=== PATIENT | male | born 1955 | race Caucasian/White ===

== ENCOUNTER → 2017-09-16 13:49 | Outpatient (CLI) | payer OTHER, SELFPAY ==
[2017-09-16 14:57] LABS: PSA,Total- Diagnostic 8.82 ng/mL (0.0-4.0)
== END ==
PROVIDERS: Family Provider Internal Medicine; PCP Internal Medicine; Visit Provider Nurse Practitioner Adult Health
DX: R97.20 Elevated prostate specific antigen [PSA] (principal)
CPT/HCPCS: 36415; 84153

== ENCOUNTER 2017-10-11 22:48 | Emergency (ER) | payer OTHER, SELFPAY ==
[2017-10-11 22:48] VITALS: BP 153/92; PULSE 51; RESP 18; TEMP 36.3; O2SAT 98; BMI 29.9
--- NOTE | 2017-10-11 23:03 | ED.DCSUM_ITS ---
- ER Visit Summary Date of Service: 10/11/17 Chief Complaint: Left flank pain History of Present Illness: The patient is a 62 M with history of prior kidney stones who presents for left flank pain, onset 2 hours ago. Pain was severe, and patient took Toradol he has at home. He now has a dull ache and states he is able to sit still. No nausea, vomiting, diarrhea, hematuria or dysuria. He does state he is slow to urinate. He has had similar symptoms in the past with prior kidney stones. He has had to have intervention for complicated stones in the past that would not pass spontaneously. Patient sees [facility]. He is currently on prednisone for a neck problem. Physical Examination: Vital signs: afebrile, hemodynamically stable, no hypoxia on room air General: well nourished, well developed, in no distress, appears mildly uncomfortable Skin: warm, dry, no rash, no pallor HEENT: normocephalic and atraumatic; PERRL, EOMI, moist mucous membranes Cardiovascular: regular rate and rhythm without murmurs, no peripheral edema, 2 + pulses all distal extremities Respiratory: No increased work of breathing, lungs are clear to auscultation bilaterally, no rales, rhonchi or wheezing Abdominal: Abdomen is soft, left lower quadrant is tender with normoactive bowel sounds, no guarding or rebound, no masses MSK: Moves all extremities, no deformities, normal strength Neuro: Awake and alert, oriented ?4. No facial droop, sensation and motor function intact and symmetric Test Results: Abnormal Lab Results 10/11/17 10/11/17 10/12/17 23:00 23:00 00:05 WBC 8.2 RBC 4.40 L Hgb 13.4 Hct 38.9 L MCV 88.4 MCH 30.5 MCHC 34.4 RDW 13.5 RDW Differential 43.6 Plt Count 210 MPV 10.4 Immature Gran % (Auto) 0.400 Neut % (Auto) 64.6 Lymph % (Auto) 23.0 [place] % (Auto) 5.1 Eos % (Auto) 5.9 H Baso % (Auto) 1.0 Absolute Neuts (auto) 5.3 Absolute Lymphs (auto) 1.88 Total Counted Not Reportable Sodium 141 Potassium 3.8 Chloride 107 Carbon Dioxide 24.0 Anion Gap 10 BUN 23 H Creatinine 1.21 Estim Creat Clear Calc 63.30 Est GFR (MDRD) Af Amer 78 Est GFR (MDRD) Non-Af 64 BUN/Creatinine Ratio 19.0 Glucose 149 H Calcium 8.5 Urine Color Yellow Urine Clarity Clear Urine pH 6.0 Ur Specific [place] 1.020 Urine Protein Negative Urine Glucose (UA) Normal Urine Ketones Negative Urine Occult Blood Negative Urine Nitrite Negative Urine Bilirubin Negative Urine Urobilinogen Normal Ur Leukocyte Esterase Negative Urine RBC 0 SEEN Urine WBC 0 SEEN Ur Squamous Epith Cells 0-5 SEEN Urine Bacteria 0 SEEN Urine Mucus 0 SEEN Clinical Impression(s) from Imaging Studies Abdomen/Pelvis CT 10/11/17 23:00 IMPRESSION: Nonobstructing upper pole left renal stone. Enlarged prostate. Small fatty umbilical hernia. Electronically Signed: Sylvain Morrissey DO at 23:41 EDT Tel [phone], Service support , Medications Given Hydromorphone HCl (Dilaudid Inj) 0.5 mg IV X1 ONE Stop: 10/12/17 00:38 Discontinued Medications Hydromorphone HCl (Dilaudid Inj) 0.5 mg IV X1 ONE Stop: 10/11/17 23:01 Last Admin: 10/11/17 23:08 Dose: 0.5 mg Ondansetron HCl (Zofran) 4 mg IV X1 ONE Stop: 10/11/17 23:01 Last Admin: 10/11/17 23:06 Dose: 4 mg Emergency Department Course and Treatment: Patient's symptoms are concerning for kidney stone, especially with patient's history and him stating this is typical for his kidney stone pain. Labs and urinalysis obtained. CT flank obtained given patient's history of complicated stones in the past. CT did not show any ureteral stone or indications of a recently passed stone Patient already took Toradol at home and was given additional pain control with IV Dilaudid and Zofran. He had improvement of his pain, but he continued to have severe shooting left flank pain. Reexamination showed no signs of early zoster or active zoster on the torso. Discussed the possibility of a musculoskeletal pain, and patient states that it really feels like internal pain and just like his prior kidney stones. Because he is having severe left flank pain without evidence of a kidney stone, CTA of the abdomen and pelvis was performed to evaluate for any possible renal infarction or renal vein/ artery thrombosis or other intra-abdominal pathology resulting in his pain. Patient was given additional pain medication. Final disposition is pending results of the CTA, which will be followed up by the night physician. Treatment Plan: [] Disposition: [] Impression: Left flank pain This note was generated with Animeeple dictation software. It may contain incorrect words, spelling, and punctuation that were not noted in review of the chart prior to signing <Meghan Kulkarni - Last Filed: 10/12/17 00:37> - ER Visit Summary Date of Service: 10/12/17 Addendum: CT angios done showed no significant abnormalities. I will enlarged prostate noted. The patient stated his PSA was checked 3 months ago and normal. Patient CTA shows no evidence of abnormality with a kidney. Nothing acute noted. Patient feels much better after treatment. Will be discharged with a short course of Percocet Zofran. This note was generated with Animeeple dictation software. It may contain incorrect words, spelling, and punctuation that were not noted in review of the chart prior to signing <Jose Velarde - Last Filed: 10/12/17 02:10> ED Disposition <Meghan Kulkarni - Last Filed: 10/12/17 00:37> <Jose Velarde - Last Filed: 10/12/17 02:10> - Plan for ED Patient: Disposition: Home or Assisted Living Chief Complaint: Flank Pain Instructions: ED Flank Pain Uncertain Cause Prescriptions: Oxycodone HCl/Acetaminophen [Percocet 5/325] 1 - 2 tab PO Q6H PRN PRN 3 Days #8 tab PRN Reason: Pain Ondansetron [Zofran Odt] 4 mg PO Q8H PRN PRN #10 tab PRN Reason: Nausea Referrals: Pau Garcia DO [Primary Care Provider] -
[2017-10-11] MEDS: Ondansetron 4 MG/2 ML Vial IV (23:06)
[2017-10-11] MEDS: HYDROmorphone 0.5 MG/0.5 ML SYRINGE IV (23:08)
[2017-10-11 23:11] LABS: Absolute Lymphocyte Count 1.88 X10^3/ul (0.83-4.51); Absolute Neutrophil Count 5.3 X10^3/uL (2.0-7.7); Basophil# 0.08 X10^3/uL; Eosinophil# 0.48 X10^3/uL; Eosinophils% 5.9 % (0-5); Hematocrit 38.9 % (40-54); Hemoglobin 13.4 g/dl (13.0-16.5); Lymphocyte # 1.88 X10^3/ul (4.0); Mean Corp Hgb Conc 34.4 g/gl (32-36); Mean Corpuscular Hgb 30.5 pg (27.0-32.0); Mean Corpuscular Volume 88.4 fL (80-94); Mean Platelet Vol. 10.4 fl (6.2-12.0); Monocyte# 0.42 X10^3/uL; Monocyte% 5.1 % (0-10); Neutrophil # 5.27 X10^3/uL (2.7-7.7); Neutrophil % 64.6 % (47-70); Platelet Count 210 K/mm3 (150-450); RBC Distribution Width CV 13.5 % (11.6-14.6); RBC Distribution Width SD 43.6 fl (35.1-43.9); White Blood Count 8.2 K/mm3 (4.4-11.0)
[2017-10-11 23:15] LABS: POSITIVE COUNT NO; POSITIVE DIFFERENTIAL NO; POSITIVE MORPHOLOGY NO
[2017-10-11 23:33] LABS: Anion Gap 10 (5-15); BUN 23 mg/dL (7-18); Calcium,Total 8.5 mg/dL (8.5-10.1); Chloride 107 mmol/L (98-107); Creatinine, Serum 1.21 mg/dL (0.70-1.30); EST Glomerular Filtration Rate 64 mL/min (>60); Est Glom Filt Rate - Afr Amer 78 mL/min (>60); Glucose 149 mg/dL (74-106); Potassium 3.8 mmol/L (3.5-5.1); Sodium Level 141 mmol/L (136-145)
[2017-10-12 00:13] LABS: Bacteria 0 SEEN /hpf (None Seen); Mucous, Urine 0 SEEN /hpf (<or=2+); Red Blood Cells-Urine 0 SEEN /hpf (0-5); White Blood Cells 0 SEEN /hpf (0-5)
[2017-10-12 00:14] LABS: Color, Urine Yellow (Yellow); Glucose, Dipstick Normal (Normal); Ketone-Dipstick Negative (Negative); Leukocyte Esterase-Dipstick Negative /ul (Negative); Nitrite-Dipstick Negative (Negative); Occult Blood-Urine Negative /ul (Negative); Protein-Dipstick Negative (Negative); Urine Bilirubin Dipstick Negative (Negative); Urine Clarity Clear (Clear); Urine Urobilinogen Normal (Normal)
[2017-10-12 00:30] LABS: Squamous Epithelial Cells - UA 0-5 SEEN /hpf (0-5)
--- NOTE | 2017-10-12 00:32 | ED.DEP ---
ED Disposition - Plan for ED Patient: Disposition: Home or Assisted Living Chief Complaint: Flank Pain Instructions: ED Flank Pain Uncertain Cause Prescriptions: Oxycodone HCl/Acetaminophen [Percocet 5/325] 1 - 2 tab PO Q6H PRN PRN 3 Days #8 tab PRN Reason: Pain Ondansetron [Zofran Odt] 4 mg PO Q8H PRN PRN #10 tab PRN Reason: Nausea Referrals: Pau Garcia DO [Primary Care Provider] -
--- NOTE | 2017-10-12 00:36 | CT_ITS ---
CT/CT ANGIO ABD&PEL W/O&W/DYE IMPRESSION: No evidence of aortic dissection, aneurysmal dilatation or calcification. There is a markedly enlarged prostate for which further evaluation with laboratory values and clinical exam is warranted. Degenerative change thoracolumbar spine. Constipation. Hepatic steatosis. Status post cholecystectomy. No evidence of appendicitis. Stable 4 mm stone left kidney, no evidence of hydronephrosis. Benign-appearing left-sided peripelvic cyst stable since prior study. Electronically Signed: Alycia Oneal MD at 1:56 EDT Tel , Service support ,
[2017-10-12] MEDS: HYDROmorphone 0.5 MG/0.5 ML SYRINGE IV (01:04)
[2017-10-12 01:06] VITALS: BP 139/96; PULSE 62; RESP 16; O2SAT 97
[2017-10-12 02:19] VITALS: PULSE 75; RESP 18; O2SAT 99
== END 2017-10-12 02:21 | disposition home or self-care (01) ==
PROVIDERS: Emergency Medicine; Emergency Provider Emergency Medicine; Family Provider Internal Medicine; PCP Internal Medicine
DX: R10.9 Unspecified abdominal pain (principal); Z87.442 Personal history of urinary calculi; Z79.52 Long term (current) use of systemic steroids; Z79.899 Other long term (current) drug therapy
CPT/HCPCS: 74174; 74176; 80048; 81001; 85025; 96374; 96375; 96376; 99283; Q9967; A4216; J2405

== ENCOUNTER → 2017-12-10 07:48 | Outpatient (CLI) | payer OTHER, SELFPAY ==
--- NOTE | 2017-12-10 07:53 | CT_ITS ---
STUDY: CT CHEST WITH CONTRAST REASON FOR EXAM: Male, 62 years old. Thoracic aortic aneurysm follow-up RADIATION DOSAGE (If Supplied By Facility): CTDIvol = ( 19.81 ) mGy, DLP = ( 722.50 ) mGycm TECHNIQUE: Transaxial imaging was performed following intravenous administration of 100ml ml of Isovue 300 contrast material. Individualized dose optimization techniques were used for this CT. COMPARISON: None. FINDINGS: Calcified granuloma in the posterior right upper lobe is stable. Subpleural parenchymal opacity of the superior segment right lower lobe and adjacent major fissure stable since the prior study. Nodule along the major fissure on axial image 46 measures 4 mm and is stable since the prior study. No new or enlarging pulmonary nodule. Oval-shaped nodule along the minor fissure on axial image 67 measures 4 mm average diameter, stable. No pleural effusion. Normal heart and pericardium. Normal mediastinum. Normal hilar regions. Normal enhanced pulmonary arteries. Aneurysmal enlargement of the ascending thoracic aorta with AP diameter measuring 4.6 cm, stable when likely compared to the prior study. Scattered thoracic aortic atherosclerosis. The aortic arch and descending thoracic aorta are normal in caliber. There are multi-level degenerative changes of the thoracic spine. There is no demonstrated abnormality of the visualized upper abdomen. CT/Chest WITH Contrast IMPRESSION: 1. Since 08/06/2016, stable exam. 2. Stable ascending thoracic aortic aneurysm. 3. Stable right pulmonary nodules. No new or enlarging pulmonary nodule. Electronically Signed: Reji Francois MD at 18:41 EST , Service support ,
[2017-12-10 08:06] LABS: CREATININE FINGERSTICK 1.4 mg/dL (0.70-1.30)
== END ==
PROVIDERS: Family Provider Internal Medicine; PCP Internal Medicine; Referring Provider Internal Medicine Cardiovascular Disease; Visit Provider Internal Medicine Cardiovascular Disease
DX: I71.2 Thoracic aortic aneurysm, without rupture (principal)
CPT/HCPCS: 71260; Q9967

== ENCOUNTER → 2018-07-11 | Outpatient (CLI) | payer OTHER, SELFPAY ==
[2018-06-02 10:41] VITALS: BMI 30.8
--- NOTE | 2018-07-11 09:00 | ECHOD_ITS ---
Reason For Study: Murmur Procedure This was a 2D Doppler, Color Flow transthoracic echocardiogram. Exam performed in department. Left Ventricle Normal LV size. Left ventricular systolic function is normal. The estimated ejection fraction is 65 %. Diastolic function is indeterminate. No regional wall motion abnormalities noted. Right Ventricle Normal RV size. Normal systolic function. Atria Normal left atrium. Normal right atrium. No doppler evidence for ASD. Mitral Valve There is no mitral annular calcification. Normal mitral valve. Mild (1+) mitral valve insufficiency. Tricuspid Valve Normal tricuspid valve. Mild tricuspid valve insufficiency. Right ventricular systolic pressure estimated to be 27 mmHg. Aortic Valve Trisinus/trileaflet aortic valve. Mild focal aortic valve calcification. Pulmonic Valve The pulmonic valve is not well visualized. Great Vessels Mildly dilated aortic root. Pericardium/Pleural No pericardial effusion. MMode/2D Measurements & Calculations LVIDd: 4.3 cm IVSd: 1.4 cm Ao root diam: 4.0 cm LVIDs: 2.4 cm LVPWd: 0.96 cm LA dimension: 3.6 cm FS: 43.5 % LAV(MOD-bp): 44.9 ml LA A4 area: 16.5 cm2 RA A4 area: 14.8 cm2 LAV(MOD-bp) Indexed: 21.7 ml/m2 LAV(MOD-sp2): 41.7 ml LAV(MOD-sp4): 45.0 ml Time Measurements MV dec time: 0.34 sec Doppler Measurements & Calculations MV E max gurdeep: 61.8 cm/sec Lat Peak E' Gurdeep: 8.9 cm/sec Med Peak E' Gurdeep: 6.0 cm/sec MV A max gurdeep: 90.2 cm/sec E/E' lat: 6.9 E/E' med: 10.3 MV E/A: 0.69 MV V2 max: 106.9 cm/sec MV P1/2t max gurdeep: 87.6 cm/sec Ao V2 max: 174.3 cm/sec MV max P.6 mmHg MV P1/2t: 91.5 msec Ao max P.2 mmHg MV V2 mean: 56.1 cm/sec MV dec slope: 280.5 cm/sec2 Ao V2 mean: 113.0 cm/sec MV mean P.5 mmHg MVA(P1/2t): 2.4 cm2 Ao mean P.0 mmHg MV V2 VTI: 35.9 cm Ao V2 VTI: 33.7 cm LV V1 max: 139.9 cm/sec PA V2 max: 127.1 cm/sec PI end-d gurdeep: 83.8 cm/sec LV V1 max P.8 mmHg LV V1 mean P.9 mmHg LV V1 mean: 90.4 cm/sec LV V1 VTI: 27.0 cm TR max gurdeep: 246.0 cm/sec TR max P.2 mmHg Interpretation Summary Left ventricular systolic function is normal. The estimated ejection fraction is 65 %. Mild (1+) mitral valve insufficiency. Mild tricuspid valve insufficiency. Mild focal aortic valve calcification. Mildly dilated aortic root. Right ventricular systolic pressure estimated to be 27 mmHg. Diastolic function is indeterminate. Ordering Physician: Chapito Bentley Referring Physician: Chapito Bentley Performed By: Adam Gustafson RCS
== END | disposition home or self-care (01) ==
PROVIDERS: Family Provider Internal Medicine; PCP Internal Medicine; Referring Provider Internal Medicine Cardiovascular Disease; Visit Provider Internal Medicine Cardiovascular Disease
DX: R01.1 Cardiac murmur, unspecified (principal)
CPT/HCPCS: 93306

== ENCOUNTER 2018-10-20 08:55 | Outpatient (RCR) | payer OTHER, SELFPAY ==
[2018-06-02 10:41] VITALS: BMI 30.8
--- NOTE | 2018-10-20 14:09 | HP.FCE ---
HP OT Functional Capacity Eval - Task Lift Floor (Occasional 1-33% of Day): 7lb Floor (Frequent 34-66% of Day): Negligible Floor (Constant 67-100% of Day): Negligible Floor PDL: Sedentary Knee (Occasional 1-33% of Day): 7lb Knee (Frequent 34-66% of Day): Negligible Knee (Constant 67-100% of Day): Negligible Knee PDL: Sedentary Waist (Occasional 1-33% of Day): 7lb Waist (Frequent 34-66% of Day): Negligible Waist (Constant 67-100% of Day): Negligible Waist PDL: Sedentary Shoulder (Occasional 1-33% of Day): 3lb Shoulder (Frequent 34-66% of Day): Negligible Shoulder (Constant 67-100% of Day): Negligible Shoulder PDL: Sedentary Overhead (Occasional 1-33% of Day): 0 Overhead (Frequent 34-66% of Day): 0 Overhead (Constant 67-100% of Day): 0 Overhead PDL: Sedentary - Work Activity/Posture Bending: Occasional Ability (1-33% of day) Squatting: Frequent Ability (34-66% of day) Kneeling: Occasional Ability (1-33% of day) Reaching out: Occasional Ability (1-33% of day) Reaching up: Occasional Ability (1-33% of day) Sitting: Constant Ability (67-100% of day) Walking: Frequent Ability (34-66% of day) Standing: Frequent Ability (34-66% of day) - Reference Duration Sedentary Sedentary Light Light Light Medium Medium Medium Heavy Very Heavy Heavy Occasional (0-33% of day) Frequent (34-66% of day) Constant (67-100% of day) 10 # Negligible Negligible 15 # 8 # Negligible 20 # 10# Negli. 35 # 18 # 7 # 50 # 25 # 10 # 75 # 100 # >100 # 38 # 50 # >50 # 15 # 20 # >20 # - Patient Information Height: 5 ft 9 in Weight:: 90.718 kg Hand Dominance: Right - Medical History Medical History Including Restrictions: Pt reports the following medical hx: displacement cervical intervetrebral disc, HTN, removal of gallbladder, hx kidney stones, neuritis/radiculitis other, degeneration cervical IV disc - Diagnoses Diagnoses: displacement cervical intervetrebral disc, HTN, removal of gallbladder, hx kidney stones, neuritis/radiculitis other, degeneration cervical IV disc - Symptoms Symptoms: aching pain cervical spine, sometimes stabbing pain in cervical spine, hurts to move L arm, L arm gets very tight and aching pain and L neck gets very tight. - Pain Pain: Pt reports 6/10 cervical pain at evaluation, 5/10 pain L arm while seated. - Work History Work History: 10 yrs working for [employer] from 2003. Road maintenence, mowed, drove trucks, plowed snow. - ADLS ADLS: Lives w/ spouse 2 story house, 4 steps into kitchen, 10 steps to bedrooms 1 handrail, 2 steps no handrail. Power chair up the steps to bedroom available but doesn't use that. It was placed in stairs for [id number] years ago. Indep w/ BADLs/IADLs. Independent w/ AMB, has AE available in house if needed. Drives. Spouse usually gets groceries, he can go with her but unable to carry gallon of milk or grooceries. CHC, walk in showers, grab bars toilets and showers, HHS, shower chair available. 2 dogs to care for, able to use scoop to feed dogs, unable to carry dogs food bags. Pt does mow 1/2 acre of grass but can only do 1/3 of grass mowing a day because of pain L arm. - Physical Examination ROM: R UE WFL, L UE limited internal rotation, shoulder abduction 75', shoulder flexion 80', pt very limited secondary to pain. BLE WFL Strength: R UE 4/5, L UE 3+/5, BLE 5/5, increased pain w/ L UE MMT. Right Fisher Trammel Net Strength Average: 85.66 Left Fisher Trammel Net Strength Average: 22.00 Right Lateral Pinch Average: 21.33 Left Lateral Pinch Average: 5.33 Right Tripod Pinch Average: 12.33 Left Tripod Pinch Average: 4.00 Comments: holds L arm close to body secondary to pain during physical activities, and walking/stairs. Sensation: no numbness or tingling just aching pain L hand and arm Fine Motor: pt states has to use adaptive jar oil sales and service rep, ok for buttoning, zipping, fastening independently. Balance: No falls in past three months, states balance not what it use to be, states sometimes stumbles when turns around. Did recognize one loss of balance while turning during walk test, pt able to corect himself. - Non Material Handling Activities Bendinx, 10x, 10x fast modified reaching to milk carton box using R hand with L arm close to his side. Squattinx, 10x, 10x fast no UB support needed, seated rest break needed after squats. Kneelinx, 10x, declined to complete 10x fast secondary to knees hurting and feeling weak Reaching out/up: reaching up attempted with bilateral arms, 2 reaching up with left arm, had to complete with right arm only 1x, 10x, 10x fast with R arm. Reaching out with L arm only able to complete 2 with left arm secondary to increased pain. Completed with R arm only reaching out 1x, 10x, 10x fast. Walkin min walk test w/o rest break needed Standing: able to stand w/o difficulty Sitting: Pt able to sit for 45 minutes in beginning of evaluation w/o difficulty Climbing Stairs: 10 steps w/o holding onto handrails reciprocal motion - Dynamic Occasional Lifting Capacity Floor Lift: 7lb max having to take L arm off box to return back to waist level half way up from floor secondary to pain. Knee Lift: 7lb max Waist Lift: 7lb max Shoulder Lift: 3lb max Overhead Lift: overhead lift milkcarton only no weight, using R hand only to finish placing carton over head Carryinlb Max able to carry 40ft Comments: increased tightening noted in L cervical spine down to L hand with all lifting tasks increased limited ROM and tightening of L UE.
== END 2018-10-20 19:00 | disposition home or self-care (01) ==
LOC: OT 08:55
PROVIDERS: Family Provider Internal Medicine; PCP Internal Medicine; Referring Provider Internal Medicine; Visit Provider Internal Medicine
DX: M50.20 Other cervical disc displacement, unspecified cervical region (principal)
CPT/HCPCS: 97165; 97167

== ENCOUNTER 2019-02-11 16:30 | Emergency (ER) | payer OTHER, SELFPAY ==
[2018-06-02 10:41] VITALS: BMI 30.8
[2019-02-11 16:30] VITALS: BP 132/81; PULSE 69; RESP 17; TEMP 36.7; O2SAT 97; BMI 31.1
--- NOTE | 2019-02-11 17:15 | CT_ITS ---
STUDY: CT ABDOMEN AND PELVIS WITHOUT CONTRAST REASON FOR EXAM: Male, 64 years old. LEFT FLANK PAIN. HISTORY OF KIDNEY STONES RADIATION DOSAGE (If Supplied By Facility): CTDIvol = ( 10.44 ) mGy, DLP = ( 529.72 ) mGycm TECHNIQUE: Transaxial images were obtained from the dome of the diaphragm to the symphysis pubis without oral contrast, and without intravenous contrast. Sagittal and coronal images were reconstructed. Individualized dose optimization techniques were used for this CT. COMPARISON: CTA abdomen and pelvis October 12, 2017; noncontrast CT abdomen and pelvis October 11, 2017. FINDINGS: There is minimal subsegmental atelectasis in the posterior right costophrenic sulcus. The visualized portions of the heart are within normal limits. There is decreased attenuation of the liver consistent with steatosis. The patent portal vein diameter is 14.8 mm. There are surgical clips in the gallbladder fossa consistent with a prior cholecystectomy. Normal spleen. Normal pancreas. Normal bilateral adrenal glands. Normal right kidney. 3.5 mm stone noted at the left ureteropelvic junction, with mild hydroureteronephrosis. An additional nonobstructing 1 mm stone is noted in the left upper pole. There is mild left perinephric stranding. Normal visualized stomach. Normal small intestine. Normal colon. The appendix is visualized and appears normal. There is minor atherosclerotic calcification of the abdominal aorta, without a demonstrated aneurysm. Normal inferior vena cava. Normal retroperitoneum. Normal urinary bladder. There is enlargement of the prostate gland, measuring 5.52 x 6.86 x 5.41 cm (R 107 cc). There are prostatic calcifications. The anterior margin of the juncture of the left and sigmoid colon prolapses through the upper left inguinal ring. There is a left-sided inguinal hernia containing adipose tissue. There are stable degenerative changes of the lower thoracic and lower lumbar spine. Osseous bridging again noted across the upper left sacroiliac joint, and there is stable degenerative arthrosis at the pubic symphysis. CT/Abdomen/Pelvis without Cont IMPRESSION: 1. Left nephrolithiasis. 3.5 mm obstructing stone at the left ureteropelvic junction with mild left hydroureteronephrosis. 2. Enlarged prostate gland is grossly unchanged. 3. Fat-containing left inguinal hernia. The anterior margin of the colon at the junction of the left and sigmoid segments prolapses through the proximal left inguinal ring. 4. Prior cholecystectomy. 5. Hepatic steatosis. 6. Stable degenerative changes of the spine and pelvis. Electronically Signed: Alexandro oHdges MD at 18:10 EST , Service support ,
--- NOTE | 2019-02-11 17:16 | ED.VIS.GEN ---
History of Present Illness Chief Complaint: Flank Pain Detail of Chief Complaint: Left-sided kidney stone Informant: Patient Onset: Weeks Context: Gradual Onset Timing: Waxes and wanes Current Severity: Moderate Maximum Severity: Moderate Narrative: Patient presents with left flank pain. He was seen at the emergency room in [place] on February 02. He was found have a 6 mm stone at the left UVJ. He has been using Percocet and Zofran intermittently. Pain is worsened over the past day or 2. Patient has seen Dr. Payne in the past. Has an appointment to see him on the . - Past Medical History (1) Kidney stone Status: Chronic (2) Nonrheumatic mitral (valve) insufficiency Status: Chronic (3) Nonrheumatic tricuspid (valve) insufficiency Status: Chronic (4) Essential (primary) hypertension Status: Chronic (5) Pure hypercholesterolemia Status: Chronic (6) Tachycardia Status: Chronic (7) Thoracic aortic aneurysm without rupture Status: Chronic Past Medical History - Allergies and Home Meds Allergies/Adverse Reactions: Allergies No Known Allergies Allergy (Verified 02/11/19 16:30) Primary Care Physician: Pau Garcia DO [Primary Care Provider] - Doctors: Dr. Payne Prior records reviewed: Yes Lives: Spouse/ Significant Other Smoking Status: Never smoker Review of Systems General: Denies: Chills, Fever Eyes: Denies: Visual changes - bilaterally ENT: Denies: Bilateral ear pain Cardiovascular: Denies: Chest pain Respiratory: Denies: Dyspnea Gastrointestinal: Reports: Abdominal pain - Left flank Genitourinary: Denies: Dysuria, Hematuria Musculoskeletal: Reports: Back pain - Left flank Skin: Denies: Rash Neurological: Denies: Headache Hematologic: Denies: Easy bruising, Easy bleeding Allergy: Denies: Uticaria Physical Exam Vital Signs/Narrative: Vital Signs Temp Pulse Resp BP Pulse Ox 02/11/19 16:30 98.0 F 69 17 132/81 H 97 Inital Vital Signs reviewed: Yes General: Well nourished, Well developed Head: Normocephalic ENT: Moist mucous membranes Neck: Supple Cardiovascular: Regular rate, Regular rhythm Respiratory: No distress, CTA bilaterally Abdomen: Soft, Nontender, Hypoactive bowel sounds Extremities: Nontender Skin: Normal color Neurological: Alert, Oriented x3 Psychological: Normal affect Diagnostic/Tx/Re-eval Impressions Abdomen/Pelvis CT 02/11/19 17:15 IMPRESSION: 1. Left nephrolithiasis. 3.5 mm obstructing stone at the left ureteropelvic junction with mild left hydroureteronephrosis. 2. Enlarged prostate gland is grossly unchanged. 3. Fat-containing left inguinal hernia. The anterior margin of the colon at the junction of the left and sigmoid segments prolapses through the proximal left inguinal ring. 4. Prior cholecystectomy. 5. Hepatic steatosis. 6. Stable degenerative changes of the spine and pelvis. Electronically Signed: Alexandro Hodges MD at 18:10 EST , Service support , 02/11/19 17:15 Abdomen/Pelvis without Cont [CT] Stat Laboratory Results 02/11/19 02/11/19 02/11/19 17:12 17:12 17:59 WBC 5.6 RBC 4.73 Hgb 14.1 Hct 41.9 MCV 88.6 MCH 29.8 MCHC 33.7 RDW Std Deviation 39.9 RDW Coeff of [place] 12.4 Plt Count 176 MPV 10.3 Immature Gran % (Auto) 0.200 Neut % (Auto) 67.9 Lymph % (Auto) 18.[address] [place] % (Auto) 8.1 Eos % (Auto) 4.7 Baso % (Auto) 0.4 Absolute Neuts (auto) 3.8 Absolute Lymphs (auto) 1.04 Nucleated RBC % 0 Sodium 136 Potassium 3.6 Chloride 103 Carbon Dioxide 29.0 Anion Gap 4 L BUN 25 H Creatinine 1.82 H Estim Creat Clear Calc 41.00 Est GFR (MDRD) Af Amer 49 L Est GFR (MDRD) Non-Af 40 L BUN/Creatinine Ratio 13.7 Glucose 116 H Calcium 8.3 L Urine Color Yellow Urine Clarity Clear Urine pH 5.0 Ur Specific [place] 1.020 Urine Protein 15 H Urine Glucose (UA) Normal Urine Ketones Negative Urine Occult Blood 25 H Urine Nitrite Negative Urine Bilirubin Negative Urine Urobilinogen Normal Ur Leukocyte Esterase Negative Urine RBC 5-10 SEEN Urine WBC 0 SEEN Ur Squamous Epith Cells 0 SEEN Urine Bacteria 0 SEEN Urine Mucus 0 SEEN - Medical Decision Making Patient was given morphine and Zofran along with 15 mg of Toradol. He is given IV fluids. On repeat evaluation he reports no pain. He was advised that the CT report reveals the stone is only 3.5 mm and now located at the bottom of the ureter. I suspect he will be able to pass this. His creatinine is slightly bumped to 1.8. He received a full liter plus of IV fluid here to help flush his kidney. My suspicion is that this will return to normal as soon as his stone is passed. Patient already has Percocet and Zofran at home. He already takes Flomax. He will follow-up with Dr. Payne as planned. ED Disposition - Plan for ED Patient: Disposition: Home or Assisted Living Diagnosis: Kidney stone Instructions: KIDNEY STONE w/ Colic Referrals: Jorge Payne MD [STAFF PHYSICIAN] - Keep [facility] appointment
[2019-02-11 17:23] LABS: Absolute Lymphocyte Count 1.04 X10^3/uL (0.83-4.51); Absolute Neutrophil Count 3.8 X10^3/uL (2.0-7.7); Basophil# 0.02 X10^3/uL; Basophil% 0.4 % (0-1); Eosinophil# 0.26 X10^3/uL; Eosinophils% 4.7 % (0-5); Hematocrit 41.9 % (40-54); Hemoglobin 14.1 g/dL (13.0-16.5); Lymphocyte # 1.04 X10^3/ul (4.0); Lymphocyte % 18.7 % (19-41); Mean Corp Hgb Conc 33.7 g/dL (32-36); Mean Corpuscular Hgb 29.8 pg (27.0-32.0); Mean Corpuscular Volume 88.6 fL (80-94); Mean Platelet Vol. 10.3 fl (6.2-12.0); Monocyte# 0.45 X10^3/uL; Monocyte% 8.1 % (0-10); NRBC Flagged by Analyzer 0 % (0-5); Neutrophil # 3.79 X10^3/uL (2.7-7.7); Neutrophil % 67.9 % (47-70); Platelet Count 176 K/mm3 (150-450); RBC Distribution Width CV 12.4 % (11.6-14.6); RBC Distribution Width SD 39.9 fl (35.1-43.9); Red Blood Count 4.73 M/mm3 (4.6-6.2); White Blood Count 5.6 K/mm3 (4.4-11.0)
[2019-02-11] MEDS: 0.9% Normal Saline 1,000 ML 1000 ML IV (17:24)
[2019-02-11 17:35] LABS: Anion Gap 4 (5-15); BUN 25 mg/dL (7-18); BUN/Creat Ratio 13.7 RATIO (10-20); Calcium,Total 8.3 mg/dL (8.5-10.1); Chloride 103 mmol/L (98-107); Creatinine, Serum 1.82 mg/dL (0.70-1.30); EST Glomerular Filtration Rate 40 mL/min (>60); Est Glom Filt Rate - Afr Amer 49 mL/min (>60); Glucose 116 mg/dL (74-106); Potassium 3.6 mmol/L (3.5-5.1); Sodium Level 136 mmol/L (136-145)
[2019-02-11] MEDS: Ketorolac 15 MG/ML Vial IV (18:03)
[2019-02-11] MEDS: Ondansetron 4 MG/2 ML Vial IV (18:03)
[2019-02-11] MEDS: Morphine 4 MG/ML Syringe IV (18:03)
[2019-02-11 18:18] LABS: Bacteria 0 SEEN /hpf (None Seen); Mucous, Urine 0 SEEN /hpf (<or=2+); Squamous Epithelial Cells - UA 0 SEEN /hpf (0-5); White Blood Cells 0 SEEN /hpf (0-5)
[2019-02-11 18:21] LABS: Color, Urine Yellow (Yellow); Glucose, Dipstick Normal (Normal); Ketone-Dipstick Negative (Negative); Leukocyte Esterase-Dipstick Negative /ul (Negative); Nitrite-Dipstick Negative (Negative); Occult Blood-Urine 25 /ul (Negative); Protein-Dipstick 15 mg/dl (Negative); Urine Bilirubin Dipstick Negative (Negative); Urine Clarity Clear (Clear); Urine Urobilinogen Normal (Normal)
[2019-02-11 18:30] LABS: Red Blood Cells-Urine 5-10 SEEN /hpf (0-5)
[2019-02-11] MEDS: 0.9% Normal Saline 1,000 ML 150 ML IV (18:58)
[2019-02-11 19:14] VITALS: BP 144/99; PULSE 60; RESP 16; O2SAT 94
== END 2019-02-11 19:36 | disposition home or self-care (01) ==
PROVIDERS: Emergency Provider Emergency Medicine; Family Provider Internal Medicine; PCP Internal Medicine
DX: N13.2 Hydronephrosis with renal and ureteral calculous obstruction (principal); I10 Essential (primary) hypertension; E78.00 Pure hypercholesterolemia, unspecified; N40.0 Benign prostatic hyperplasia without lower urinary tract symptoms; K40.90 Unilateral inguinal hernia, without obstruction or gangrene, not specified as recurrent; Z79.899 Other long term (current) drug therapy
CPT/HCPCS: 74176; 80048; 81001; 85025; 96361; 96374; 96375; 99282; J7030; A4216; J2405

== ENCOUNTER → 2019-03-02 06:18 | Outpatient (CLI) | payer OTHER, SELFPAY ==
[2019-02-11 16:30] VITALS: BMI 31.1
--- NOTE | 2019-03-02 07:41 | STRESSREP_ITS ---
Stress Test Report Date: 03-02-2019 Procedure: Pharmacologic stress nuclear imaging study Indications: Shortness of breath/dyspnea on exertion Consent: Per the patient Procedure: The patient underwent pharmacologic (Regadenoson) evaluation with a peak heart rate of 79 beats per minute (50 %predicted maximal heart rate) and a peak blood pressure of 120/86 mmHg. The baseline ECG demonstrated sinus bradycardia. The peak pharmacologic ECG demonstrated no obvious ECG changes. There were no cardiac dysrhythmias pretest, during pharmacologic infusion, or recovery. There was no complaint of chest discomfort during pharmacologic infusion or recovery. The examination was discontinued secondary to completion of protocol. Impression: 1. Pharmacologic (Regadenoson) evaluation 2. Peak pharmacologic ECG with no obvious ECG changes. 3. There were no cardiac dysrhythmias pretest, during pharmacologic infusion, or recovery. 4. Nuclear images pending Myocardial perfusion imaging study: Technique: The patient was injected with 11.9 millicuries of technetium 99m Cardiolite and subsequently rest SPECT Cardiolite nuclear imaging was obtained in the horizontal long, vertical long, and short axis views. The patient underwent pharmacologic (Regadenoson) evaluation with a peak heart rate of 79 beats per minute (50 % percent predicted maximal heart rate) and a peak blood pressure of 120/86 mmHg. The patient was injected with 34.6 millicuries of technetium 99m Cardioliteand subsequently stress SPECT Cardiolite nuclear imaging was obtained in the horizontal long, vertical long, and short axis views. A gated Cardiolite study at peak stress was obtained. Interpretation: Rest and stress SPECT Cardiolite nuclear imaging status post realignment, normalization, and attenuation correction demonstrate relative uniform tracer uptake and myocardial perfusion appearing within normal limits. There is end systolic thickening and brightening. The gated Cardiolite study demonstrates myocardial thickening and inward wall motion. The reported LVEF is 73 %. Impression: 1. Rest and stress SPECT Cardiolite nuclear imaging demonstrate relative uniform tracer uptake and myocardial perfusion appearing within normal limits. 2. The gated Cardiolite study reports an LVEF of 73 %. This note was generated with Improve Digitalation software. It may contain incorrect words, spelling, and punctuation that were not noted in checking the note before signing.
== END ==
PROVIDERS: PCP Internal Medicine; Referring Provider Physician Assistant Medical; Visit Provider Physician Assistant Medical
DX: R06.02 Shortness of breath (principal); R00.0 Tachycardia, unspecified; I34.0 Nonrheumatic mitral (valve) insufficiency; I36.1 Nonrheumatic tricuspid (valve) insufficiency; I10 Essential (primary) hypertension
CPT/HCPCS: 78452; 93017; A9500; A4216; J2785

== ENCOUNTER → 2019-03-03 10:41 | Outpatient (CLI) | payer OTHER, SELFPAY ==
[2019-03-03 09:17] VITALS: BMI 30.2
--- NOTE | 2019-03-03 11:02 | RAD_ITS ---
STUDY: X-RAY CHEST REASON FOR EXAM: Male, 64 years old. INCREASED SOB, CHEST PRESSURE TECHNIQUE: PA and lateral views of the chest. COMPARISON: 12/30/2010, 12/03/2010 FINDINGS: The lungs are clear and expanded. There is pleural fibrotic scarring of the right costophrenic angle. Normal size heart. Normal mediastinum and sandra. Normal visualized pulmonary arteries. There is atherosclerotic tortuosity of the aortic arch and descending thoracic aorta. Normal visualized thoracic spine. Normal visualized ribs, clavicles, and shoulders. There are surgical clips at the medial right upper abdomen. RAD/Chest PA and Lateral IMPRESSION: No airspace consolidation. Electronically Signed: Reji Francois MD (Brooks) at 15:19 EST , Service support ,
[2019-03-03 11:32] LABS: Absolute Lymphocyte Count 1.84 X10^3/uL (0.83-4.51); Absolute Neutrophil Count 2.8 X10^3/uL (2.0-7.7); Basophil# 0.05 X10^3/uL; Eosinophil# 0.26 X10^3/uL; Hematocrit 42.7 % (40-54); Hemoglobin 14.4 g/dL (13.0-16.5); Lymphocyte # 1.84 X10^3/ul (4.0); Mean Corp Hgb Conc 33.7 g/dL (32-36); Mean Corpuscular Hgb 29.7 pg (27.0-32.0); Mean Platelet Vol. 10.5 fl (6.2-12.0); Monocyte# 0.31 X10^3/uL; Monocyte% 5.9 % (0-10); NRBC Flagged by Analyzer 0 % (0-5); Neutrophil # 2.78 X10^3/uL (2.7-7.7); Neutrophil % 52.9 % (47-70); Platelet Count 247 K/mm3 (150-450); RBC Distribution Width CV 12.2 % (11.6-14.6); RBC Distribution Width SD 38.9 fl (35.1-43.9); Red Blood Count 4.85 M/mm3 (4.6-6.2); White Blood Count 5.3 K/mm3 (4.4-11.0)
[2019-03-03 11:56] LABS: AST(SGOT) 26 U/L (15-37); Alanine Aminotransfer ALT/SGPT 47 U/L (16-61); Alkaline Phosphatase 75 U/L (45-117); Anion Gap 7 (5-15); BUN 22 mg/dL (7-18); BUN/Creat Ratio 17.9 RATIO (10-20); Bilirubin, Direct 0.19 mg/dL (0.00-0.30); Calcium,Total 9.2 mg/dL (8.5-10.1); Chloride 105 mmol/L (98-107); Cholesterol 196 mg/dL (200); Creatinine, Serum 1.23 mg/dL (0.70-1.30); EST Glomerular Filtration Rate 63 mL/min (>60); Est Glom Filt Rate - Afr Amer 76 mL/min (>60); Globulin 3.6 g/dL (2.2-4.2); Glucose 93 mg/dL (74-106); High Density Lipoprotein 40 mg/dL; Potassium 3.6 mmol/L (3.5-5.1); Protein, Total 7.6 g/dL (6.4-8.2); Sodium Level 139 mmol/L (136-145); Triglycerides 143 mg/dL; Very Low Density Lipoprotein 29 mg/dL (5-40)
[2019-03-03 12:03] LABS: BNP,B-Type NATRIURETIC PEPTIDE 6.2 pg/mL (0-100)
== END ==
PROVIDERS: PCP Internal Medicine; Referring Provider Internal Medicine Cardiovascular Disease; Visit Provider Internal Medicine Cardiovascular Disease
DX: I10 Essential (primary) hypertension (principal)
CPT/HCPCS: 36415; 71046; 80048; 80061; 80076; 83880; 85025

== ENCOUNTER 2019-03-10 11:21 | Day surgery (SDC) | payer OTHER, SELFPAY ==
[2019-03-03 09:17] VITALS: BMI 30.2
[2019-03-10 12:08] VITALS: BP 129/82; PULSE 55; RESP 15; TEMP 36.6; O2SAT 96; BMI 29.7
[2019-03-10] MEDS: Lactated Ringers 1,000 ML 100 ML IV (12:14)
[2019-03-10] MEDS: Cefazolin 2 GM in 0.9% Normal Saline 100 ML IV (12:14)
[2019-03-10] MEDS: Ketorolac 30 MG/ML Syringe IV (12:44)
--- NOTE | 2019-03-10 12:47 | OP.PCM_ITS ---
Report of Operation Date of Procedure: 03/10/19 Pre-Operative Diagnosis: Left ureteral calculi Post-Operative Diagnosis: The same Surgery/Procedure Performed:: Cystoscopy, left retrograde pyelogram, interpretation fluoroscopic images, balloon dilation of the left ureter, left ureteroscopy. No stent placed. Description of Surgical Findings:: 64-year-old male was found to have a 6 mm stone distal left ureter he does not think he has passed a stone still having pain off-and-on still having difficulty with urination he does have enlarged prostate takes doxazosin a daily basis today were taken the surgery for left ureteroscopy and laser of the stone. 64-year-old male taken back to the operating room at the [facility] of general anesthesia he was placed in dorsolithotomy position, penis and testicles were prepped and draped in usual sterile fashion. Went into the urethra with a 21 Luxembourgish rigid cystourethroscope the entire length urethra is normal the scar tissue abnormality the sphincter was intact he did have a very large obstructive prostate bilateral hypertrophy a very high riding bladder neck with a large median lobe once is able to get over this prostate then inside the bladder identified the left ureteral orifice first was a torturous ureter with the with the J hooking ureters advanced a wire up with, difficulty with a wire through I could feel the stone and hitting the wire as a but the wire up the ureter and then over the wire then straightened out the ureter and then used the balloon dilator and balloon dilated the distal ureter I try to go in with the semirigid ureteroscope but the angle was too tough and because of the high riding prostate and the narrow pelvis I could not go in with a semirigid so I backed this out I used a dual-lumen catheter then to go over the wire that was in the ureter I put a second wire and a safety wire once both wires in place set the first wire as a safety wire and over the second wire went in with the flexible ureteroscope went all the way up the ureter pulled the working wire out leaving the safety wire in place and inspected the upper pole midpole lower pole the kidney did a retrograde pyelogram worked my way down all the way down the ureter the distal ureter was very tortuous but no stone was seen along the course of the distal ureter I then worked my way out the bladder and the urethra this point went back in with the cystoscope drain the bladder we confirmed on CAT scan it was a left side we rechecked the images there was no stone seen pulled out the wire no stent was left the ureter was draining nicely patient anesthetic was reversed to be sent home with antibiotics pain medicine and Pyridium continue with doxazosin for enlarged prostate he does have a very enlarged prostate with a high riding bladder neck large median lobe and a significant amount of obstruction. We can see him back in a month for a checkup. I decided not to leave a stent and there was no obstructing stone and only had to do a very minimal dilation. Type of Anesthesia:: General Drains: none - Admit VTE Documentation VTE Mechan Device Prophylaxis: SCD's
--- NOTE | 2019-03-10 12:47 | PCM.DC.URO ---
Discharge Diet: Light diet - advance as tolerated Discharge Activity: Return to Normal Activity Call your doctor if you observe: Fever of 101 or Higher Allergies/Adverse Reactions: Allergies No Known Allergies Allergy (Verified 03/10/19 12:06) Medications to take at Discharge doxazosin 8 mg tablet 8 mg PO DAILY 12/03/17 Chlorthalidone 25 mg PO DAILY 02/27/19 Lisinopril 20 mg PO DAILY 02/27/19 atorvastatin 10 mg tablet 10 mg PO DAILY #30 tab 03/03/19 potassium chloride 20 mEq tablet,extended release 20 meq PO DAILY 03/03/19 Ciprofloxacin [Cipro] 500 mg PO BID #6 tab 03/10/19 Hydrocodone/Acetaminophen [Haskell 5-325 Tablet] 1 each PO Q4H PRN PRN 5 Days #14 tablet 03/10/19 Phenazopyridine [Pyridium] 100 mg PO TID #14 tab 03/10/19 The following prescriptions were given: Ciprofloxacin [Cipro] 500 mg PO BID #6 tab [facility] Status[facility] Hydrocodone/Acetaminophen [Haskell 5-325 Tablet] 1 each PO Q4H PRN PRN 5 Days #14 tablet PRN Reason: Pain Score 6-10/10 Transmission Status: [facility] Phenazopyridine [Pyridium] 100 mg PO TID #14 tab Transmission Status: Pending to [facility] Primary Care Physician: Pau Garcia DO [Primary Care Provider] - Test Results: Test results from this visit will be discussed in further detail at your follow-up appointment, if applicable. Please Follow Up With: Jorge Payne MD When: in 4 weeks, please call to make an appointment.
[2019-03-10 12:53] VITALS: BP 100/63; BP 129/82; PULSE 65; RESP 16; TEMP 36.1; O2SAT 92
[2019-03-10 13:00] VITALS: BP 118/82; BP 129/82; PULSE 66; RESP 16; O2SAT 97
[2019-03-10 13:15] VITALS: BP 113/85; BP 129/82; PULSE 58; RESP 16; O2SAT 96
[2019-03-10 13:17] VITALS: BP 116/84; BP 129/82; PULSE 56; RESP 16; TEMP 36.3; O2SAT 95
[2019-03-10 16:15] VITALS: BP 129/82; BP 139/88; PULSE 60; RESP 16; TEMP 36.3; O2SAT 98
== END 2019-03-10 16:27 | disposition home or self-care (01) ==
LOC: SDC 11:21 → ACINP 11:23 → AC 11:29
PROVIDERS: Family Provider Internal Medicine; PCP Internal Medicine; Visit Provider Urology
PROC: 0TJ98ZZ Inspection of Ureter, Via Natural or Artificial Opening Endoscopic (ICD-10-PCS; CPT 52352; principal; 2019-03-10 15:40)
DX: N20.1 Calculus of ureter (principal); N40.1 Benign prostatic hyperplasia with lower urinary tract symptoms; I10 Essential (primary) hypertension; G47.30 Sleep apnea, unspecified; E21.3 Hyperparathyroidism, unspecified; Z87.442 Personal history of urinary calculi; Z79.899 Other long term (current) drug therapy
CPT/HCPCS: 00910; 52005; 76000; J7120; C1758; C1769; J2405

== ENCOUNTER → 2019-03-14 | Outpatient (CLI) | payer OTHER, SELFPAY ==
[2019-03-03 09:17] VITALS: BMI 30.2
[2019-03-10 12:08] VITALS: BMI 29.7
--- NOTE | 2019-03-14 11:39 | US_ITS ---
STUDY: RENAL ULTRASOUND - COMPLETE REASON FOR EXAM: Male, 64 years old. RENAL CALC TECHNIQUE: Ultrasound evaluation of the kidneys was performed with real-time and static pelayo-scale imaging. COMPARISON: None. FINDINGS: RIGHT KIDNEY: Normal location of the right kidney, which is normal in size. The right kidney measures 11 x 5.7 x 4.8 cm. There is a normal cortex of the right kidney. The renal cortex measures 1.3 cm. There is no right renal mass or cyst. Tiny vascular calcification in the right kidney. There is no right hydronephrosis. DISTAL RIGHT URETER: There is non-visualization of the distal right ureter. There is no demonstrated right ureterovesical junction calculus. There is a visualized right ureteral jet. LEFT KIDNEY: Normal location of the left kidney, which is normal in size. The left kidney measures 11.2 x 4.4 x 5.5 cm. There is a normal cortex of the left kidney. The renal cortex measures 1.4 cm. There is no left renal mass or cyst. There is a tiny nonobstructing left renal calculus. There is no left hydronephrosis. DISTAL LEFT URETER: There is non-visualization of the distal left ureter. There is no demonstrated left ureterovesical junction calculus. There is a visualized left ureteral jet. BLADDER: The distended urinary bladder has a volume of 122 ml. There is a normal wall thickness of the distended urinary bladder. There is no demonstrated mass within the urinary bladder. There are no demonstrated bladder calculi. Prostate is enlarged measuring 7.1 x 6 x 6.4 cm US/Kidney and Bladder IMPRESSION: Left nephrolithiasis. No evidence for hydronephrosis Electronically Signed: Holland Monae MD at 20:16 EST , Service support ,
--- NOTE | 2019-03-14 12:34 | ECHOD_ITS ---
Procedure This was a 2D Doppler, Color Flow transthoracic echocardiogram. The study was technically difficult. Exam performed in department. Left Ventricle Normal LV size. Sigmoid septum. Left ventricular systolic function is normal. The estimated ejection fraction is 65 %. No evidence for diastolic dysfunction. No regional wall motion abnormalities noted. Right Ventricle Normal RV size. Normal systolic function. Atria Normal left atrium. Normal right atrium. No doppler evidence for ASD. Mitral Valve There is no mitral annular calcification. Mild diffuse mitral valve thickening. Mild (1+) mitral valve insufficiency. Tricuspid Valve Normal tricuspid valve. Mild tricuspid valve insufficiency. Right ventricular systolic pressure estimated to be 29 mmHg. Aortic Valve Trisinus/trileaflet aortic valve. Normal aortic valve. Pulmonic Valve The pulmonic valve is not well visualized. Mild (1+) pulmonic valve insufficiency. Great Vessels The ascending aorta is moderately dilated. Pericardium/Pleural No pericardial effusion. MMode/2D Measurements & Calculations LVIDd: 4.8 cm IVSd: 1.1 cm Ao root diam: 4.6 cm LVIDs: 3.0 cm LVPWd: 1.1 cm RVDd: 3.6 cm FS: 37.1 % LAV(MOD-bp): 49.0 ml LVAd ap4: 30.3 cm2 SV(MOD-sp4): 67.3 ml LAV(MOD-bp) Indexed: 23.9 ml/m2 EDV(MOD-sp4): 98.6 ml LAV(MOD-sp2): 50.1 ml EDV(sp4-el): 103.2 ml LAV(MOD-sp4): 40.9 ml LVAs ap4: 15.4 cm2 ESV(MOD-sp4): 31.3 ml ESV(sp4-el): 32.4 ml EF(MOD-sp4): 68.3 % EF(sp4-el): 68.6 % SV(sp4-el): 70.8 ml LA A4 area: 15.1 cm2 LA dimension(2D): 4.1 cm RA A4 area: 10.2 cm2 Time Measurements MV dec time: 0.29 sec Doppler Measurements & Calculations MV E max gurdeep: 69.6 cm/sec Lat Peak E' Gurdeep: 10.6 cm/sec Med Peak E' Gurdeep: 5.6 cm/sec MV A max gurdeep: 86.4 cm/sec E/E' lat: 6.6 E/E' med: 12.4 MV E/A: 0.81 Ao V2 max: 154.6 cm/sec LV V1 max: 137.7 cm/sec PA V2 max: 102.5 cm/sec Ao max P.6 mmHg LV V1 max P.6 mmHg PI end-d gurdeep: 74.0 cm/sec TR max gurdeep: 254.7 cm/sec TR max P.1 mmHg Interpretation Summary The study was technically difficult. Left ventricular systolic function is normal. The estimated ejection fraction is 65 %. Sigmoid septum. Mild diffuse mitral valve thickening. Mild (1+) mitral valve insufficiency. Mild tricuspid valve insufficiency. Mild (1+) pulmonic valve insufficiency. The ascending aorta is moderately dilated. Right ventricular systolic pressure estimated to be 29 mmHg. No evidence for diastolic dysfunction. Ordering Physician: Chapito Bentley Referring Physician: Chapito Bentley
== END | disposition home or self-care (01) ==
LOC: US 11:29
PROVIDERS: PCP Internal Medicine; Referring Provider Internal Medicine Cardiovascular Disease; Visit Provider Internal Medicine Cardiovascular Disease
DX: N20.0 Calculus of kidney (principal); R06.02 Shortness of breath; I71.2 Thoracic aortic aneurysm, without rupture; E78.00 Pure hypercholesterolemia, unspecified; I10 Essential (primary) hypertension; R01.1 Cardiac murmur, unspecified
CPT/HCPCS: 76770; 93306

== ENCOUNTER → 2019-03-24 | Outpatient (CLI) | payer OTHER, SELFPAY ==
[2019-03-10 12:08] VITALS: BMI 29.7
--- NOTE | 2019-03-24 12:53 | PFT ---
INTRODUCTION: The patient is a 64-year-old male that presents for pulmonary function studies secondary to a diagnosis of shortness of breath. Respiratory therapy reports good patient effort. Bronchodilators were used during testing. INTERPRETATION: Forced expiration spirometry demonstrates no evidence of a large airways obstructive ventilatory defect. There was no significant response to aerosolized bronchodilators, based upon strict ATS criteria. Spirograms are of good quality and plateau normally. Body plethysmography was performed and reveals a decreased TLC to 5.13 L, 81% of predicted, indicative of a mild restrictive ventilatory impairment. The remainder of the lung volumes are symmetrically reduced. Diffusing capacity by single breath CO is within normal limits at 98% of predicted. IMPRESSION: Isolated mild restrictive ventilatory impairment with preserved diffusing capacity.
== END | disposition home or self-care (01) ==
LOC: PSN 06:53
PROVIDERS: PCP Internal Medicine; Referring Provider Internal Medicine Cardiovascular Disease; Visit Provider Internal Medicine Cardiovascular Disease
DX: R06.02 Shortness of breath (principal)
CPT/HCPCS: 94060; 94726; 94729

== ENCOUNTER → 2019-03-28 | Outpatient (CLI) | payer OTHER, SELFPAY ==
[2019-03-28 12:19] VITALS: BMI 28.2
[2019-03-28 16:25] LABS: Absolute Neutrophil Count 4.3 X10^3/uL (2.0-7.7); Basophil# 0.07 X10^3/uL; Eosinophil# 0.32 X10^3/uL; Eosinophils% 4.7 % (0-5); Hematocrit 40.8 % (40-54); Hemoglobin 13.4 g/dL (13.0-16.5); Lymphocyte % 25.2 % (19-41); Mean Corp Hgb Conc 32.8 g/dL (32-36); Mean Corpuscular Hgb 29.2 pg (27.0-32.0); Mean Corpuscular Volume 88.9 fL (80-94); Mean Platelet Vol. 10.7 fl (6.2-12.0); Monocyte# 0.39 X10^3/uL; Monocyte% 5.8 % (0-10); NRBC Flagged by Analyzer 0 % (0-5); Neutrophil # 4.25 X10^3/uL (2.7-7.7); Platelet Count 253 K/mm3 (150-450); RBC Distribution Width CV 12.5 % (11.6-14.6); RBC Distribution Width SD 40.3 fl (35.1-43.9); Red Blood Count 4.59 M/mm3 (4.6-6.2); White Blood Count 6.8 K/mm3 (4.4-11.0)
[2019-03-28 16:59] LABS: AST(SGOT) 26 U/L (15-37); Alanine Aminotransfer ALT/SGPT 43 U/L (16-61); Albumin, Serum 4.1 g/dL (3.2-5.0); Alkaline Phosphatase 105 U/L (45-117); Bilirubin, Direct 0.18 mg/dL (0.00-0.30); Cholesterol 129 mg/dL (200); Globulin 3.4 g/dL (2.2-4.2); High Density Lipoprotein 43 mg/dL; Protein, Total 7.5 g/dL (6.4-8.2); Triglycerides 78 mg/dL; Very Low Density Lipoprotein 16 mg/dL (5-40)
[2019-04-01 20:07] LABS: Aspirgillus flavus Negative (Neg:<1:1); Aspirgillus fumigatus Negative (Neg:<1:1); Aspirgillus niger Negative (Neg:<1:1)
[2019-04-02 04:06] LABS: Alternaria tenuis <0.10 kU/L (Class 0); Ash, White <0.10 kU/L (Class 0); Aspergillus fumigatus <0.10 kU/L (Class 0); Bermuda Grass <0.10 kU/L (Class 0); Birch <0.10 kU/L (Class 0); Black Walnut <0.10 kU/L (Class 0); Cat Hair / Dander,Stand <0.10 kU/L (Class 0); Cedar, Mountain <0.10 kU/L (Class 0); Cladosporium herbarum <0.10 kU/L (Class 0); Cockroach, American <0.10 kU/L (Class 0); Cottonwood <0.10 kU/L (Class 0); D farinae Mite <0.10 kU/L (Class 0); D pteronyssinus <0.10 kU/L (Class 0); Dog Epithelia <0.10 kU/L (Class 0); Elm, American White <0.10 kU/L (Class 0); Immunoglobulin E 14 IU/mL (6-495); Maple/Box Elder <0.10 kU/L (Class 0); Mulberry, White <0.10 kU/L (Class 0); Oak, White <0.10 kU/L (Class 0); Pecan <0.10 kU/L (Class 0); Penicillium Notatum <0.10 kU/L (Class 0); Pigweed, Rough <0.10 kU/L (Class 0); Ragweed, Short/Common <0.10 kU/L (Class 0); Russian Thistle <0.10 kU/L (Class 0); Sheep Sorrel <0.10 kU/L (Class 0); Sycamore, American <0.10 kU/L (Class 0); Timothy Grass <0.10 kU/L (Class 0)
[2019-04-02 09:11] LABS: Mouse Urine <0.10 kU/L (Class 0)
[2019-04-02 09:12] LABS: Immunoglobulin E 16 IU/mL (6-495)
== END | disposition home or self-care (01) ==
LOC: LAB 15:11
PROVIDERS: Internal Medicine Cardiovascular Disease; PCP Internal Medicine; Referring Provider Internal Medicine Critical Care Medicine; Visit Provider Internal Medicine Critical Care Medicine
DX: E78.00 Pure hypercholesterolemia, unspecified (principal); R06.02 Shortness of breath
CPT/HCPCS: 36415; 80061; 80076; 82785; 85025; 86003; 86606

== ENCOUNTER 2019-07-07 08:23 | Day surgery (SDC) | payer OTHER, SELFPAY ==
[2019-05-29 13:03] VITALS: BMI 28.5
--- NOTE | 2019-07-04 08:39 | EKG12_ITS ---
Test Reason : PRE-OP Blood Pressure : / mmHG Vent. Rate : 052 BPM Atrial Rate : 052 BPM P-R Int : 158 ms QRS Dur : 100 ms QT Int : 456 ms P-R-T Axes : 006 -40 020 degrees QTc Int : 424 ms Sinus bradycardia Left axis deviation Poor R wave progression Abnormal ECG Confirmed by FREDRICK BRITO, RANJAN ([id number]), video effects editor DEJAH YEE ([id number]) on 07/06/2019 2:41:29 PM Referred By: Jorge Payne Confirmed By:RANJAN ALCALA MD
[2019-07-04 09:06] LABS: Hematocrit 44.6 % (40-54); Hemoglobin 14.6 g/dL (13.0-16.5); Mean Corp Hgb Conc 32.7 g/dL (32-36); Mean Corpuscular Hgb 28.6 pg (27.0-32.0); Mean Corpuscular Volume 87.5 fL (80-94); Mean Platelet Vol. 10.6 fl (6.2-12.0); Platelet Count 232 K/mm3 (150-450); RBC Distribution Width CV 12.7 % (11.6-14.6); RBC Distribution Width SD 40.6 fl (35.1-43.9); White Blood Count 5.8 K/mm3 (4.4-11.0)
[2019-07-04 09:38] LABS: Anion Gap 7 (5-15); BUN 23 mg/dL (7-18); BUN/Creat Ratio 19.5 RATIO (10-20); Calcium,Total 9.5 mg/dL (8.5-10.1); Chloride 108 mmol/L (98-107); Creatinine, Serum 1.18 mg/dL (0.70-1.30); EST Glomerular Filtration Rate 66 mL/min (>60); Est Glom Filt Rate - Afr Amer 80 mL/min (>60); Glucose 98 mg/dL (74-106); Potassium 3.9 mmol/L (3.5-5.1); Sodium Level 141 mmol/L (136-145)
[2019-07-07] VITALS (10 sets, daily range): BP systolic 112–141; BP diastolic 73–90; PULSE 53–66; RESP 16; TEMP 36.2–36.6; O2SAT 93–100; BMI 28.5
[2019-07-07] MEDS: Lactated Ringers 1,000 ML 100 ML IV ×2 (09:25→12:09)
--- NOTE | 2019-07-07 09:33 | HP.PCM_ITS ---
History of Present Illness Date of Admission: 07/07/19 Chief Complaint: BPH with obstruction and elevated PSA The patient is a 64 year old male with a history of enlarged prostate been having difficulty with urination obstructive urinary symptoms on cystoscopy found to have obstructive prostate talked about management options with the patient including medical therapy, surgery, laser treatment. Given his prostate size and anatomy I thought that a TURP would be a very good option to alleviate obstruction. Also at the same time because of the elevated PSA we will do a transrectal guided prostate biopsy. We talk about the risk of the surgery including bleeding, infection, scar tissue, anesthesia risk, retrograde ejaculation, risk of erectile dysfunction. Spoke to the patient and his in the preop area ample time was given answer all his questions he signed the consent form again to proceed today. Past Medical History Past Medical History (Chronic Problems): Chronic Problems (Last Reviewed 05/29/19 @ 13:09 by Joselin Greene) Kidney stone (Chronic) Pure hypercholesterolemia (Chronic) Thoracic aortic aneurysm without rupture (Chronic) Nonrheumatic tricuspid (valve) insufficiency (Chronic) Nonrheumatic mitral (valve) insufficiency (Chronic) Abnormal electrocardiogram (Chronic) Other halfway (current) drug therapy (Chronic) Sleep apnea (Chronic) Cardiac murmur (Chronic) Tachycardia (Chronic) Essential (primary) hypertension (Chronic) Medical History: Medical History (Last Reviewed 05/29/19 @ 13:09 by Joselin Greene) Fatigue (Acute) R53.83 Chest pain (Acute) R07.9 Pure hypercholesterolemia (Chronic) E78.00 Thoracic aortic aneurysm without rupture (Chronic) I71.2 Nonrheumatic tricuspid (valve) insufficiency (Chronic) I36.1 Nonrheumatic mitral (valve) insufficiency (Chronic) I34.0 Abnormal electrocardiogram (Chronic) R94.31 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) Z79.899 Sleep apnea (Chronic) G47.30 Cardiac murmur (Chronic) R01.1 Tachycardia (Chronic) R00.0 Essential (primary) hypertension (Chronic) I10 Hyperlipidemia (Inactive) E78.5 Allergies No Known Allergies Allergy (Verified 07/07/19 09:16) Home Medications: Ambulatory Orders Medication Instructions Recorded Chlorthalidone 25 mg PO DAILY 02/27/19 Lisinopril 20 mg PO DAILY 02/27/19 potassium chloride 20 mEq 20 meq PO DAILY 03/03/19 tablet,extended release alfuzosin 10 mg tablet,extended 10 mg PO DAILY 05/29/19 release 24 hr Cholecalciferol (Vitamin D3) 5,000 unit PO DAILY 06/30/19 [Vitamin D3] Doxazosin Mesylate 8 mg PO DAILY 06/30/19 Turmeric Root Extract [Turmeric] 500 mg PO DAILY 06/30/19 Surgical History: Surgical History (Last Reviewed 05/29/19 @ 13:09 by Joselin Greene) History of cholecystectomy Z90.49 History of neck surgery Z98.890 July 2016 History of repair of rotator cuff Z98.890 History of vasectomy Z98.52 Surgical History: no surgical history Smoking Status: Never smoker Review of Systems Constitutional: Denies: Chills, Fever, Weight Change HEENT: Denies: Head Aches, Sinus Congestion, Sinus Drainage Cardiovascular: Denies: Chest Pain, Palpitations Respiratory: Denies: Cough, Shortness of breath at rest, Sputum production Gastrointestinal: Denies: Abdominal Pain, Nausea, Vomiting Genitourinary: Denies: Dysuria Musculoskeletal: Denies: Joint Pain, Joint Tenderness Skin: Denies: Rash, Wounds Neurological: Denies: Numbness, Tingling, Focal weakness Psychiatric: Denies: Anxiety, Depression, Homicidal Ideations, Suicidal Ideations Hematologic/ Lymphatic: Denies: Easy Bruising, Easy Bleeding VTE Information - Inpt Only VTE Present on Admission: No VTE Mechan Device Prophylaxis: SCD's - Physical Exam Vitals/I&O's: Vital Signs Temp Pulse Resp BP Pulse Ox 97.4 F L 55 L 16 112/73 100 07/07/19 09:17 07/07/19 09:17 07/07/19 09:17 07/07/19 09:17 07/07/19 09:17 Oxygen Delivery Method Room Air Weight: 87.6 kg Body Mass Index (BMI) 28.5 General: Alert, Oriented x3, Cooperative HEENT: Atraumatic, PERRLA, EOMI, Normocephalic Neck: Supple, No JVD, Negative Carotid Bruits Lungs: Clear to auscultation, Normal air movement Cardiovascular: Regular rate, No murmurs Abdomen: Bowel Sounds Present, Soft, Non Tender Extremities: No edema, Capillary Refill Less than 3 Seconds Skin: No rashes, No breakdown Musculoskeletal: No Tenderness to Palpation of Joints or Extremities Neurological: Cranial nerves II-XII grossly intact Psych/Mental Status: Normal Affect, Appropriate Microbiology Past 72 Hours 07/06/19 08:58 Mucosa - Nasopharyngeal Coronavirus COVID-19 PCR - Final Laboratory Results 07/07/19 08:58: COVID-19 (ROBERT) Cancelled Current Medications Cefazolin Sodium 2 gm/ Sodium (Chloride) 110 mls @ 150 mls/hr IV PREOP ONE Stop: 07/07/19 10:43 Lactated Ringer's () 1,000 mls @ 100 mls/hr IV .Q10H [facility] Last Admin: 07/07/19 09:25 Dose: 100 mls/hr Documented by: Assessment/Plan All Active Problems (Last Reviewed 05/29/19 @ 13:09 by Joselin Greene) Fatigue (Acute) Chest pain (Acute) SOB (shortness of breath) on exertion (Acute) 64-year-old male with BPH and obstruction plan to proceed with a transurethral resection of the prostate and a transrectal prostate biopsy.
--- NOTE | 2019-07-07 09:35 | DCINST_ITS ---
Discharge Diet: No Restrictions, Light diet - advance as tolerated Discharge Activity: Return to Normal Activity, May Not Drive - for 2 days. Additional Activity Instructions:: Please be aware that pain medications may cause nausea. You should typically eat light foods as you take your pain medication. Pain medication may cause constipation, if this is a problem for you, please discuss with your doctor. Call your doctor if your incision/area has: Continuous Slow Oozing, Sudden Incr eased Bleeding, Increased Pain/ Swelling, Increased Redness, Foul Smelling Discharge, Swelling at the incision site Call your doctor if you observe: Fever of 101 or Higher, Inability to urinate, Uncontrolled pain Suture Line Care: Avoid Pulling/Pushing, Avoid Pinching/Bending Instructions: Transurethral Resection of the Prostate (TURP): Home Recovery Allergies/Adverse Reactions: Allergies No Known Allergies Allergy (Verified 07/07/19 09:16) Medications to take at Discharge Chlorthalidone 25 mg PO DAILY 02/27/19 Lisinopril 20 mg PO DAILY 02/27/19 potassium chloride 20 mEq tablet,extended release 20 meq PO DAILY 03/03/19 alfuzosin 10 mg tablet,extended release 24 hr 10 mg PO DAILY 05/29/19 Cholecalciferol (Vitamin D3) [Vitamin D3] 5,000 unit PO DAILY 06/30/19 Doxazosin Mesylate 8 mg PO DAILY 06/30/19 Turmeric Root Extract [Turmeric] 500 mg PO DAILY 06/30/19 Cephalexin [Keflex] 500 mg PO Q8 #14 cap 07/07/19 The following prescriptions were given: Cephalexin [Keflex] 500 mg PO Q8 #14 cap Transmission Status: Pending to [facility] Primary Care Physician: Pau Garcia DO [Primary Care Provider] - Test Results: Test results from this visit will be discussed in further detail at your follow- up appointment, if applicable. Please Follow Up With: Jorge Payne MD When: in 2 weeks, please call to make an appointment.
[2019-07-07] MEDS: Lubricating Jelly 60 GM Tube 30 GM TOPICAL (09:39)
[2019-07-07] MEDS: Cefazolin 2 GM in 0.9% Normal Saline 100 ML IV (09:48)
--- NOTE | 2019-07-07 10:10 | PROS_PTH ---
PATIENT: LEXA QUICK LOC: [facility] [place] U#:[id number] AGE/SX: 64/M ROOM: RE07/07/[address]: Dr. Jorge Payne MD : [id number] BED: DIS: 07/08/2019 SPEC #: [id number] RECD: 07/07/19 12:55 STATUS: JARVIS REJanell #: [id number] RAE: 07/07/19 10:[address]: Jorge Payne DEPT: SURGICAL PATHOLOGY RECD BY: Tyrese Hendrix ENTERED: 07/10/19 09:30 SP TYPE: TURP OTHR DR: Dr. Pau Garcia DO Tissues: A - Prostate, NOS B - PROSTATE RIGHT C - PROSTATE LEFT Procedures: Surgery Specimen Level IV HEADER OPERATION: Cystoscopy, transurethral resection of prostate PRE-OP DIAGNOSIS: BPH with obstruction, elevated PSA TISSUE SUBMITTED: A - Prostate tissue, B - Right prostate biopsy, C - Left prostate biopsy MICROSCOPIC DIAGNOSIS A. Prostate tissue, TUR: Benign prostatic hyperplasia, predominantly glandular type. Mild chronic inflammation. B. Right prostate, core biopsy: Prostatic tissue, negative for malignancy. C. Left prostate, core biopsy: Prostatic tissue, negative for malignancy. Focal mild chronic inflammation. SJ:antwon 07/11/19 MICROSCOPIC DESCRIPTION Slides are reviewed. GROSS DESCRIPTION A - Received is one container labeled with the patient's name and designated prostate tissue. The specimen consists of multiple irregular fragments of pink-wong, rubbery, soft tissue that in aggregate weigh 11.6 gm and measure in aggregate 6 x 5 x 1.5 cm. The entire specimen is submitted in eight cassettes. B - Received in fixative is one container labeled with the patient's name and designated right prostate biopsy. The specimen consists of two elongated fragments of light wong-white soft tissue each measuring 1.5 cm in length and 0.1 cm in diameter. The specimen is totally submitted in one cassette. C - Received in fixative is one container labeled with the patient's name and designated left prostate biopsy. The specimen consists of four elongated fragments of light wong-white soft tissue each measuring 1 cm in length and 0.1 cm in diameter. The specimen is totally submitted in one cassette. / AM:antwon 07/10/19 TC:5 CPT: 57273 x3
--- NOTE | 2019-07-07 11:18 | OP.PCM_ITS ---
Report of Operation Date of Procedure: 07/07/19 Pre-Operative Diagnosis: BPH with obstruction, left prostate nodule, elevated PSA Post-Operative Diagnosis: Same Surgery/Procedure Performed:: Multiple procedures,. Transurethral resection of the prostate. Transrectal biopsy of the prostate Description of Surgical Findings:: 64-year-old male with a history of enlarged prostate BPH with obstruction today presents for resection of the obstructive tissue also has a history of elevated PSA he agreed to undergo biopsy of the prostate the same time. At the time of the procedure also exam the prostate and does have a nodule on the left side of the prostate is palpable and firm. 64 male taken back to the operating room after smooth induction of anesthesia he was placed in dorsolithotomy position. The penis and testicles are prepped and draped in usual sterile fashion, I dilated the meatus, I went in with a 21 [place] rigid cystourethroscope the entire length the urethra was normal the prostate was normal the sphincter was intact once inside the prostate had a very high riding median lobe obstructive tissue and obstructive bilateral hypertrophy. I then removed the 21 [place] scope and went back in with a visual obturator and the 22 [place] noncontinuous flow resectoscope I then proceeded with resection of the median lobe. He had a very high riding bladder neck and median lobe this was resected, identified the left and right ureteral orifice ease were uninjured during resection of the median lobe these were also checked at the end of the resection and these were open and clear and patent. I then resected the floor the prostate all the way back to the verumontanum identified the room identified the right lobe of the prostate it was resected all the way up to the roof and then the left lobe of the prostate was resected all the way to roof as well spent an hour resecting the tissue obtain very good hemostasis and then all the chips were Ellik out of the bladder we put a catheter into the bladder with a catheter guide I irrigated the bladder and the bladder irrigated nicely and there was an continuous flow in the nice clear urine. I then double gloved and used a guide through my digit and I palpated the nodule on the left side of the prostate and 3 biopsies of this were made there were good biopsies were sent off to special in the left side and then tumor biopsies in the right side were done using an 18-gauge needle after the biopsies were completed then patient acetic was reversed taken back to PACU good condition. Type of Anesthesia:: General Drains: 3 way petit - Admit VTE Documentation VTE Present on Admission: No VTE Mechan Device Prophylaxis: SCD's
[2019-07-07] MEDS: 0.9% Normal Saline 1,000 ML 75 ML IV ×2 (13:42→23:48)
[2019-07-07] MEDS: Tamsulosin HCl 0.4 MG Capsule PO (17:36)
[2019-07-07] MEDS: oxyCODONE 5 MG Tablet PO ×2 (17:39→22:04)
[2019-07-07] MEDS: Docusate Sodium 100 MG Capsule PO (22:04)
[2019-07-08 02:48] VITALS: BP 116/83; PULSE 59; RESP 18; TEMP 36.5; O2SAT 98
[2019-07-08] MEDS: oxyCODONE 5 MG Tablet PO (05:55)
[2019-07-08 09:39] VITALS: BP 137/86; PULSE 64; RESP 18; TEMP 36.5; O2SAT 98
[2019-07-08] MEDS: Docusate Sodium 100 MG Capsule PO (09:44)
[2019-07-08] MEDS: Doxazosin 4 MG Tablet 8 MG PO (09:45)
[2019-07-08] MEDS: Lisinopril 20 MG Tablet PO (09:45)
[2019-07-08] MEDS: Chlorthalidone 50 MG Tablet 25 MG PO (09:45)
[2019-07-08] MEDS: Pantoprazole Sodium 40 MG Tablet PO (09:46)
== END 2019-07-08 11:30 | disposition home or self-care (01) ==
LOC: SDC 08:23 → AC 08:23 → MS3 09:57
PROVIDERS: Anesthesiology; PCP Internal Medicine; Referring Provider Urology; Visit Provider Urology
PROC: (CPT 52630; principal; 2019-07-07 10:00)
DX: N40.1 Benign prostatic hyperplasia with lower urinary tract symptoms (principal); N13.8 Other obstructive and reflux uropathy; N41.1 Chronic prostatitis; E78.00 Pure hypercholesterolemia, unspecified; G47.30 Sleep apnea, unspecified; I10 Essential (primary) hypertension; Z79.899 Other long term (current) drug therapy; Z87.442 Personal history of urinary calculi; Z11.59 Encounter for screening for other viral diseases
CPT/HCPCS: 52630; 36415; 80048; 85027; 87635; 88305; 93005; 99251; G2023; J7030; J7120; G0463; U0004

== ENCOUNTER → 2019-08-14 | Outpatient (CLI) | payer OTHER, SELFPAY ==
[2019-07-07 13:13] VITALS: BMI 28.5
== END | disposition home or self-care (01) ==
LOC: LABSPEC 17:06
PROVIDERS: PCP Internal Medicine; Referring Provider Urology; Visit Provider Urology
DX: R31.9 Hematuria, unspecified (principal)
CPT/HCPCS: 87086

== ENCOUNTER → 2019-12-27 07:47 | Outpatient (CLI) | payer MEDICARE, OTHER, SELFPAY ==
[2019-12-20 10:36] VITALS: BMI 29.1
--- NOTE | 2019-12-27 08:00 | CT_ITS ---
STUDY: CT CHEST WITH CONTRAST REASON FOR EXAM: Male, 64 years old. TAA FOLLOW UP RADIATION DOSAGE (If Supplied By Facility): CTDIvol = ( 15.71 ) mGy, DLP = ( 607.47 ) mGycm TECHNIQUE: Transaxial imaging was performed following intravenous administration of IV 100mL Isovue-300. Multiplanar coronal and sagittal images were reformatted. Individualized dose optimization techniques were used for this CT. COMPARISON: Comparison is made with prior study dated 12/10/2017. FINDINGS: A subcentimeter hypodense nodule is seen in the upper pole of the left lobe of the thyroid. Stable calcified granuloma in the posterior aspect of the right upper lobe. Stable 4 mm noncalcified nodule in the posterior medial aspect of the superior segment of the right lower lobe as seen on axial image #40. Stable small oval-shaped nodule along the minor fissure as seen on axial image #66. There is no demonstrated pleural abnormality. Normal heart and pericardium. Normal mediastinum. Normal hilar regions. Normal enhanced pulmonary arteries. The root of the ascending thoracic aorta is dilated measuring 4.8 cm in transverse dimension. There are multi-level degenerative changes of the thoracic spine. There is no demonstrated abnormality of the visualized upper abdomen. CT/Chest WITH Contrast IMPRESSION: Minimal increase in size of the ascending thoracic aorta with a transverse dimension of 4.8 cm. The remainder of the examination is unchanged. Electronically Signed: Hiram Muñoz, at 9:13 EST , Service support ,
[2019-12-27 08:10] LABS: CREATININE FINGERSTICK 1.1 mg/dL (0.70-1.30)
== END ==
PROVIDERS: PCP Internal Medicine; Referring Provider Internal Medicine Cardiovascular Disease; Visit Provider Internal Medicine Cardiovascular Disease
DX: I71.2 Thoracic aortic aneurysm, without rupture (principal)
CPT/HCPCS: 71260; Q9967

== ENCOUNTER → 2020-04-17 09:59 | Outpatient (CLI) | payer MEDICARE, OTHER, SELFPAY ==
[2019-12-20 10:36] VITALS: BMI 29.1
--- NOTE | 2020-04-17 10:01 | CT_ITS ---
EXAM: CT ABDOMEN AND PELVIS WITHOUT INTRAVENOUS CONTRAST CLINICAL INDICATION: STONES TECHNIQUE: Helically acquired images were obtained of the abdomen and pelvis without intravenous contrast. This CT exam was performed using one or more of the following dose reduction techniques: automated exposure control, adjustment of the mA and/or kV according to patient size, and/or use of iterative reconstruction technique. This report was created using [employer] report generation technology. COMPARISON: 02/11/2019. FINDINGS: LOWER THORAX: Unremarkable. Lung bases are clear. No cardiomegaly. No significant pericardial effusion. ABDOMEN: LIVER: Unremarkable. Homogeneous. GALLBLADDER AND BILE DUCTS: Postsurgical absence of the gallbladder. PANCREAS: Unremarkable. No focal cystic mass. SPLEEN: Unremarkable. Normal size without focal cystic or solid mass. ADRENALS: Unremarkable. No nodules. KIDNEYS AND URETERS: Improvement of left hydronephrosis. Normal renal size and position. STOMACH AND BOWEL: Unremarkable. No stomach or bowel distention. No focal inflammatory change. PELVIS: APPENDIX: Normal. BLADDER: Unremarkable. REPRODUCTIVE: Prominent central lobe of the prostate gland is suggestive of at least BPH. ABDOMEN and PELVIS: INTRAPERITONEAL SPACE: Unremarkable. No ascites or other fluid collection. No free air. BONES/JOINTS: Unremarkable. No suspicious lytic or blastic abnormality. SOFT TISSUES: Unremarkable. No discrete abdominal or pelvic wall hernia. VASCULATURE: Unremarkable. Abdominal aorta is non-dilated. LYMPH NODES: Unremarkable. No enlarged lymph nodes. CT/Abdomen/Pelvis without Cont IMPRESSION: 1. No acute findings in the abdomen or pelvis. 2. Improvement of left hydronephrosis when compared to 02/11/2019. 3. No CT evidence of stones in the kidneys, ureters and urinary bladder. 4. Enlarged central lobe of the prostate gland is at least BPH but unchanged. Electronically Signed: Bakari Jovel MD at 10:37 EST , Service support ,
== END ==
PROVIDERS: PCP Internal Medicine; Referring Provider Nurse Practitioner Adult Health; Visit Provider Nurse Practitioner Adult Health
DX: N20.0 Calculus of kidney (principal); M54.89 Other dorsalgia
CPT/HCPCS: 74176; 87086

== ENCOUNTER 2020-05-18 07:53 | Emergency (ER) | payer MEDICARE, OTHER, SELFPAY ==
[2019-12-20 10:36] VITALS: BMI 29.1
[2020-05-18 07:54] VITALS: BP 160/110; PULSE 54; RESP 16; TEMP 36.2; O2SAT 96; BMI 29.5
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
[2020-05-18] MEDS: oxyCODONE 5 MG Tablet PO (08:55)
[2020-05-18] MEDS: Ketorolac 15 MG/ML Vial IM (08:56)
[2020-05-18] MEDS: predniSONE 20 MG Tablet 60 MG PO (08:56)
[2020-05-18 09:07] VITALS: BP 169/77; PULSE 77; RESP 15; O2SAT 98
== END 2020-05-18 09:08 | disposition home or self-care (01) ==
LOC: ED 08:38
PROVIDERS: Emergency Provider Student in an Organized Health Care Education/Training Program; PCP Internal Medicine
DX: S16.1XXA Strain of muscle, fascia and tendon at neck level, initial encounter (principal); I10 Essential (primary) hypertension; Z79.899 Other long term (current) drug therapy; X50.1XXA Overexertion from prolonged static or awkward postures, initial encounter; Y93.89 Activity, other specified; Y92.89 Other specified places as the place of occurrence of the external cause; Y99.8 Other external cause status
CPT/HCPCS: 96372; 99283

== ENCOUNTER 2021-02-10 08:26 | Outpatient (CLI) | payer MEDICARE, OTHER, SELFPAY | END 2021-02-10 23:59 | disposition short-term general hospital (02) | PROVIDERS: PCP Internal Medicine; Referring Provider Urology; Visit Provider Urology | DX: Z12.5 Encounter for screening for malignant neoplasm of prostate (principal) | CPT/HCPCS: 36415; 84153; G0103 ==

== ENCOUNTER 2021-05-15 07:55 | Day surgery (SDC) | payer MEDICARE, OTHER, SELFPAY ==
[2021-05-15] VITALS (7 sets, daily range): BP systolic 103–157; BP diastolic 73–95; PULSE 44–59; RESP 16–18; TEMP 36.1–36.3; O2SAT 92–99; BMI 30.2
--- NOTE | 2021-05-15 08:14 | PCM.HP.BLA ---
History and Physical Date of Admission: 05/15/21 LEXA QUICK, is a 66 M who presents to the office today for a screening colonoscopy. Reports last colonoscopy being 12 years prior. He did not have any polyps, diverticular disease or hemorrhoidal disease at the time. He has been experiencing some pressure in his rectum not associated with any bleeding or tenesmus. He has not had any imaging of his abdomen pelvis. He does have a recent history of back surgery for spinal stenosis. He has had 2 other surgeries on his spine for spinal stenosis. He has been having some urinary incontinence it was recently diagnosed with BPH. He was started on Flomax but he has not started a medicine yet. He is reporting rectal pressure with lower back pain. He also reports blood in his stool several times a week for the last 3-4 months with stools being a normal color. Reporting normal BM. Reports urinary symptoms of nocturnal incontinence and urgency, seeing urology for this. Environmental allergies tested and were negative. Food allergies tested and found allergy to seafood, cow?s milk and whole egg. CT abd/pel 04/17/20 performed with improvement of left hydronephrosis and unchanged BPH of central lobe. ROS Const Constitutional: Positive for fatigue ENT ENT: Positive for tinnitus Cardio Cardiology: Positive for leg pain with exertion Gastro GI: Positive for bloating, heartburn, Blood in stool and nausea/dyspepsia Genitourinary Male: Positive for urinary incontinence and urinary urgency Musc Musculoskeletal: Positive for joint pain, back pain, joint swelling, muscle cramps, numbness, stiffness, tingling, Arthritis, leg pain at night and leg pain with exertion Neuro Neurology: Positive for numbness and tingling Endo Endocrine: Positive for fatigue, increased thirst/drinking, increased hunger and increased urine leakage Exam Const General: cooperative and comfortable Nutritional Appearance: average body habitus and well nourished [facility] Head: normal to inspection Ears: hearing grossly normal bilaterally Nose: external nose normal Face and sinus: normal facial exam Mouth: oral mucosae normal Throat: posterior oropharynx normal Eyes General: appearance normal, both eyes and all related structures Neck Neck: normal visual inspection Chest Chest palpation & inspection: normal inspection of the chest and normal palpation of entire chest wall Resp Effort & Inspection: normal respiratory effort Auscultation: Bilateral: Clear to Auscultation Cardio Palpation: normal PMI Rate: regular rate Rhythm: regular rhythm GI Inspection: normal to inspection Auscultation: normal bowel sounds Percussion: normal to percussion Palpation: no hepatosplenomegaly Skin General: no rashes or lesions noted Neuro General: patient alert Extrem General: normal to inspection Psych Affect: normal affect Quality Reporting Tobacco Screening ([facility] 138) Smoking Status: Never smoker Assessment and Plan Assessment and Plan (1) Lower GI bleeding: Status: Acute Plan - Dr. Alberto Friend, DO: The differential diagnosis for lower GI bleeding in this patient would be hemorrhoidal disease, proctitis, diverticulosis associated with segmental colitis, less likely neoplasia. We will perform a colonoscopy to evaluate his lower GI tract. He was explained alternatives, risk, benefits including not withstanding bleeding, infection, sepsis, perforation, need for urgent . He will have an ASA 1. (2) Rectal pain: Status: Acute Plan - Dr. Alberto Friend, DO: It is concerning that his PSA is going up and he is having rectal pain. He is following up with urology and was recently started on medical therapy. We will evaluate his rectum fully during his upcoming colonoscopy as there is no gross abnormalities on physical examination at this time. I have re-examined the patient. There are no clinical changes since date of exam.
[2021-05-15] MEDS: Lactated Ringers 1,000 ML 15 ML IV (09:00)
--- NOTE | 2021-05-15 09:00 | COLBX_PTH ---
PATIENT: LEXA QUICK LOC: [facility] U#:[id number] AGE/SX: 66/M ROOM: RE05/15/[address]: Dr. Remy Jorge DO : 1955 BED: DIS: 05/15/2021 SPEC #: [id number] RECD: 05/15/21 11:30 STATUS: JARVIS ERNESTINA #: [id number] RAE: 05/15/21 09:[address]: Remy Jorge DEPT: SURGICAL PATHOLOGY RECD BY: Leisa Fox ENTERED: 05/15/21 12:32 SP TYPE: COLON BX OTHR DR: Dr. Pau Garcia DO Tissues: A - Ileum, NOS B - COLON BIOPSY C - Rectum, NOS Procedures: Surgery Specimen Level IV HEADER OPERATION: Colonoscopy ([facility]) PRE-OP DIAGNOSIS: Lower GI bleeding, rectal pain TISSUE SUBMITTED: A ? Terminal ileum biopsy, B ? Random colon biopsy, C ? Anorectal junction biopsy MICROSCOPIC DIAGNOSIS A. Terminal ileum, biopsy: No pathologic change. B. Colon, random biopsy: No pathologic change. C. Anorectal junction, biopsy: Fragments of colonic mucosa with hyperplastic change. AM:[place] 05/16/2021 MICROSCOPIC DESCRIPTION Slides are reviewed. GROSS DESCRIPTION A - Received in fixative is one container labeled with the patient's name and designated terminal ileum. The specimen consists of two irregular fragments of light wong soft tissue that in aggregate measure 0.7 x 0.5 x 0.1 cm. The specimen is totally submitted in one cassette. B - Received in fixative is one container labeled with the patient's name and designated random colon. The specimen consists of multiple irregular fragments of light wong soft tissue that in aggregate measure 1.5 x 0.6 x 0.1 cm. The specimen is totally submitted in one cassette. C - Received in fixative is one container labeled with the patient's name and designated anorectal junction. The specimen consists of two irregular fragments of light wong soft tissue that in aggregate measure 0.3 x 0.3 x 0.1 cm. The specimen is totally submitted in one cassette. / AM:[place] 05/15/2021 TC:5 CPT: 23529 x3
--- NOTE | 2021-05-15 09:45 | OP.COLON_ITS ---
Patient Name: Panchito Meneses Procedure Date: 05/15/2021 8:55 AM Date of : 1955 Age: 66 Procedure: Colonoscopy Indications: Rectal pain Providers: Remy Jorge DO Referring MD: Pau Garcia Medicines: See the Anesthesia note for documentation of the administered medications Patient Profile: This is a 66 year old male. Refer to note in patient chart for documentation of history and physical. Last Colonoscopy: date unknown. Unable to locate last colonoscopy report. Complications: No immediate complications. Procedure: Pre-Anesthesia Assessment: - Prior to the procedure, a History and Physical was performed, and patient medications and allergies were reviewed. The patient is competent. The risks and benefits of the procedure and the sedation options and risks were discussed with the patient. All questions were answered and informed consent was obtained. Patient identification and proposed procedure were verified by the physician in the pre-procedure area. Mental Status Examination: alert and oriented. Airway Examination: normal oropharyngeal airway and neck mobility. Respiratory Examination: clear to auscultation. CV Examination: normal. Prophylactic Antibiotics: The patient does not require prophylactic antibiotics. Prior Anticoagulants: The patient has taken no previous anticoagulant or antiplatelet agents. ASA Grade Assessment: II - A patient with mild systemic disease. After reviewing the risks and benefits, the patient was deemed in satisfactory condition to undergo the procedure. The anesthesia plan was to use moderate sedation / analgesia (conscious sedation). Immediately prior to administration of medications, the patient was re-assessed for adequacy to receive sedatives. The heart rate, respiratory rate, oxygen saturations, blood pressure, adequacy of pulmonary ventilation, and response to care were monitored throughout the procedure. The physical status of the patient was re-assessed after the procedure. After I obtained informed consent, the scope was passed under direct vision. Throughout the procedure, the patient's blood pressure, pulse, and oxygen saturations were monitored continuously. The Colonoscope was introduced through the anus and advanced to the terminal ileum. The colonoscopy was performed without difficulty. The patient tolerated the procedure well. The quality of the bowel preparation was good. Moderate Sedation: Moderate (conscious) sedation was administered by the endoscopy nurse and supervised by the endoscopist. The patient's oxygen saturation, heart rate, blood pressure and response to care were monitored. Total physician intraservice time was 15 minutes. Scope In: 9:10:25 AM Scope Withdrawal Time 0 hours 23 minutes 56 seconds Scope Out: 9:36:48 AM Total Procedure Duration Time 0 hours 26 minutes 23 seconds Findings: An anal fissure was found on perianal exam. External and internal hemorrhoids were found during retroflexion. The hemorrhoids were Grade II (internal hemorrhoids that prolapse but reduce spontaneously). A hemorrhoid was isolated with anoscopy. The ShortShot ligator was positioned over the hemorrhoid at the left lateral position. Suction was applied and one rubber band was placed over the hemorrhoid. This was checked to make certain that the muscularis was free of the band. Post-banding digital rectal exam showed band in good position. The patient tolerated the procedure well. The patient appeared stable and comfortable at the end of the procedure. Discontinuous areas of nonbleeding ulcerated mucosa with no stigmata of recent bleeding were present at the anus. Biopsies were taken with a cold forceps for histology. Verification of patient identification for the specimen was done. Estimated blood loss was minimal. Anorectal junction neovascularization with an ulcer at the base was seen and biopsied. The colon (entire examined portion) appeared normal. Biopsies were taken with a cold forceps for histology. Verification of patient identification for the specimen was done. Estimated blood loss was minimal. The terminal ileum appeared normal. Biopsies were taken with a cold forceps for histology. Verification of patient identification for the specimen was done. Estimated blood loss was minimal. Impression: - Anal fissure found on perianal exam. - No specimens collected. Recommendation: - Discharge patient to home. - Resume previous diet. - Continue present medications. - Await pathology results. - Repeat colonoscopy in 5 years for surveillance based on pathology results. - Return to GI office. Procedure Code(s): --- Professional --- 00428, Colonoscopy, flexible; with band ligation(s) (eg, hemorrhoids) 08805, Colonoscopy, flexible; with biopsy, single or multiple 30843, 59, Moderate sedation services provided by the same physician or other qualified health home health caregiver performing the diagnostic or therapeutic service that the sedation supports, requiring the presence of an independent trained observer to assist in the monitoring of the patient's level of consciousness and physiological status; initial 15 minutes of intraservice time, patient age 5 years or older CPT copyright 2017 [employer]. All rights reserved. The codes documented in this report are preliminary and upon clinical coder review may be revised to meet current compliance requirements. Remy Jorge DO 05/15/2021 9:45:32 AM This report has been signed electronically. Number of Addenda: 1 Note Initiated On: 05/15/2021 8:55 AM Addendum Number: 1 Addendum Date: 11/06/2021 6:45:35 AM MAC was used as sedation for this procedure. Remy Jorge DO 11/06/2021 6:45:39 AM This report has been signed electronically.
--- NOTE | 2021-05-15 09:46 | OP.CCLET_ITS ---
11/06/2021 Pau Garcia [address] [place] [address] Re : Colonoscopy procedure for Panchito Meneses Dear Dr. Garcia This procedure was performed on May. My impressions and recommendations are as follows: Impressions : - Anal fissure found on perianal exam. - No specimens collected. Recommendations : - Discharge patient to home. - Resume previous diet. - Continue present medications. - Await pathology results. - Repeat colonoscopy in 5 years for surveillance based on pathology results. - Return to GI office. My findings are described in the full procedure note, which is enclosed. If I can be of further assistance, please feel free to contact me at . Sincerely, Remy Jorge, 05/15/2021 9:45:32 AM This report has been signed electronically.
== END 2021-05-15 23:59 | disposition home or self-care (01) ==
LOC: EN 07:55 → AC 07:56
PROVIDERS: PCP Internal Medicine; Referring Provider Internal Medicine; Visit Provider Internal Medicine Gastroenterology
PROC: 0DJD8ZZ Inspection of Lower Intestinal Tract, Via Natural or Artificial Opening Endoscopic (ICD-10-PCS; CPT 45378; principal; 2021-05-15 08:55)
DX: Z12.11 Encounter for screening for malignant neoplasm of colon (principal); K64.4 Residual hemorrhoidal skin tags; K64.1 Second degree hemorrhoids; K60.2 Anal fissure, unspecified; N40.0 Benign prostatic hyperplasia without lower urinary tract symptoms; I10 Essential (primary) hypertension; G47.30 Sleep apnea, unspecified; M54.9 Dorsalgia, unspecified; G89.29 Other chronic pain; Z79.899 Other long term (current) drug therapy; Z86.16 Personal history of COVID-19
CPT/HCPCS: 45380; 45398; 87426; 88305; J7120; J2405

== ENCOUNTER → 2021-07-01 | Outpatient (CLI) | payer MEDICARE, OTHER, SELFPAY ==
[2021-07-01 15:06] LABS: Hematocrit 41.3 % (40-54); Hemoglobin 14.4 g/dL (13.0-16.5); Mean Corp Hgb Conc 34.9 g/dL (32-36); Mean Corpuscular Hgb 30.3 pg (27.0-32.0); Mean Corpuscular Volume 86.8 fL (80-94); Mean Platelet Vol. 10.1 fl (6.2-12.0); Platelet Count 246 K/mm3 (150-450); RBC Distribution Width CV 12.2 % (11.6-14.6); RBC Distribution Width SD 38.6 fl (35.1-43.9); Red Blood Count 4.76 M/mm3 (4.6-6.2); White Blood Count 7.5 K/mm3 (4.4-11.0)
[2021-07-01 15:50] LABS: Anion Gap 7 (5-15); BUN 20 mg/dL (7-18); BUN/Creat Ratio 16.7 RATIO (10-20); Calcium,Total 8.8 mg/dL (8.5-10.1); Chloride 106 mmol/L (98-107); EST Glomerular Filtration Rate 64 mL/min (>60); Est Glom Filt Rate - Afr Amer 78 mL/min (>60); Glucose 158 mg/dL (74-106); Potassium 3.5 mmol/L (3.5-5.1); Sodium Level 138 mmol/L (136-145)
== END | disposition home or self-care (01) ==
LOC: LAB 14:50
PROVIDERS: PCP Internal Medicine; Referring Provider Physician Assistant Medical; Visit Provider Physician Assistant Medical
DX: I10 Essential (primary) hypertension (principal); R42 Dizziness and giddiness
CPT/HCPCS: 36415; 80048; 85027

== ENCOUNTER → 2021-08-26 | Outpatient (CLI) | payer MEDICARE, OTHER, SELFPAY ==
--- NOTE | 2021-08-26 13:04 | CT_ITS ---
STUDY: CTA CHEST REASON FOR EXAM: Male, 66 years old. TAA RADIATION DOSAGE (If Supplied By Facility): CTDIvol = ( 14.61 ) mGy, DLP = ( 564.58 ) mGycm TECHNIQUE: The examination was performed with the intravenous administration of IV 100mL Isovue-370. Post-processing of the angiographic images was performed, with multiplanar reformation and 3D reconstruction. Individualized dose optimization techniques were used for this CT. COMPARISON: Comparison is made with prior study dated 12/27/2019. FINDINGS: Tiny hypodense nodule in the inferior aspect of the left lobe of the thyroid. Stable small bilateral axillary lymph nodes. Normal enhancement of the main pulmonary artery and right and left pulmonary arteries. Normal enhancement of the bilateral peripheral pulmonary arteries. There is no demonstrated pulmonary embolism. There is aneurysmal dilatation of the ascending aorta. The transverse diameter of the ascending aorta measures 49 mm''s. There is no demonstrated aortic dissection. Normal heart and pericardium. Normal mediastinum. Normal hilar regions. Normal visualized trachea and bronchi. The lungs are well expanded. Stable calcified granuloma in the posterior aspect of the right upper lobe. Stable 4 mm noncalcified nodule in the posteromedial aspect of the superior segment of the right lower lobe as seen on axial image #42. Normal pleura. Normal chest wall structures. There are degenerative changes of thoracic spine. Normal visualized upper abdomen. CT/CTA Chest W/WO Contrast IMPRESSION: Stable examination. Electronically Signed: Hiram Muñoz MD at 14:47 EDT ,
--- NOTE | 2021-08-26 13:04 | ECHOD_ITS ---
Reason For Study: MURMUR Procedure This was a 2D Doppler, Color Flow transthoracic echocardiogram. Exam performed in department. Left Ventricle Normal LV size. Left ventricular systolic function is normal. The estimated ejection fraction is 65 %. No evidence for diastolic dysfunction. No regional wall motion abnormalities noted. Right Ventricle Normal RV size. Normal systolic function. Atria Normal left atrium. Normal right atrium. No doppler evidence for ASD. Mitral Valve There is no mitral annular calcification. Normal mitral valve. Mild (1+) mitral valve insufficiency. Tricuspid Valve Normal tricuspid valve. Mild tricuspid valve insufficiency. Right ventricular systolic pressure estimated to be 32 mmHg. Aortic Valve Trisinus/trileaflet aortic valve. Moderate focal aortic valve calcification. Trivial aortic valve insufficiency. Pulmonic Valve The pulmonic valve is not well visualized. Mild (1+) pulmonic valve insufficiency. Great Vessels Moderately dilated aortic root. Pericardium/Pleural No pericardial effusion. MMode/2D Measurements & Calculations LVIDd: 4.9 cm IVSd: 0.97 cm Ao root diam: 3.8 cm LVIDs: 3.2 cm LVPWd: 1.0 cm RVDd: 3.5 cm FS: 34.1 % LAV(MOD-bp): 42.2 ml LVAd ap4: 26.4 cm2 SV(MOD-sp4): 47.4 ml LAV(MOD-bp) Indexed: 20.6 ml/m2 LVLd ap4: 7.9 cm LAV(MOD-sp2): 41.1 ml EDV(MOD-sp4): 72.1 ml LAV(MOD-sp4): 40.8 ml EDV(sp4-el): 74.9 ml LVAs ap4: 13.0 cm2 LVLs ap4: 6.0 cm ESV(MOD-sp4): 24.8 ml ESV(sp4-el): 24.1 ml EF(MOD-sp4): 65.7 % EF(sp4-el): 67.9 % SV(sp4-el): 50.8 ml LA A4 area: 16.4 cm2 LA dimension(2D): 3.0 cm RA A4 area: 15.3 cm2 Time Measurements MV dec time: 0.28 sec Doppler Measurements & Calculations MV E max gurdeep: 69.6 cm/sec Lat Peak E' Gurdeep: 10.8 cm/sec Med Peak E' Gurdeep: 7.6 cm/sec MV A max gurdeep: 84.7 cm/sec E/E' lat: 6.5 E/E' med: 9.2 MV E/A: 0.82 Ao V2 max: 171.4 cm/sec LV V1 max: 160.5 cm/sec MV dec slope: 248.0 cm/sec2 Ao max P.8 mmHg LV V1 max P.3 mmHg Ao V2 mean: 114.8 cm/sec Ao mean P.1 mmHg Ao V2 VTI: 38.3 cm PA V2 max: 109.4 cm/sec PI end-d gurdeep: 103.2 cm/sec TR max gurdeep: 267.3 cm/sec TR max P.6 mmHg ECHO/Echo Complete Interpretation Summary Left ventricular systolic function is normal. The estimated ejection fraction is 65 %. Mild (1+) mitral valve insufficiency. Mild tricuspid valve insufficiency. Moderate focal aortic valve calcification. Trivial aortic valve insufficiency. Mild (1+) pulmonic valve insufficiency. Moderately dilated aortic root. Right ventricular systolic pressure estimated to be 32 mmHg. No evidence for diastolic dysfunction. Ordering Physician: Joselin Garnett/Chapito Bentley Referring Physician: MORIAH GEORGE Performed By: Debi Scales RDCS
[2021-09-01 07:58] LABS: EGFR FINGERSTICK > 60.0000 mL/min (>60)
== END | disposition home or self-care (01) ==
LOC: CVS 13:01
PROVIDERS: PCP Internal Medicine; Referring Provider Physician Assistant Medical; Visit Provider Physician Assistant Medical
DX: I71.2 Thoracic aortic aneurysm, without rupture (principal); R01.1 Cardiac murmur, unspecified; R94.31 Abnormal electrocardiogram [ECG] [EKG]
CPT/HCPCS: 71275; 93306; Q9967

== ENCOUNTER 2021-08-28 09:30 | Outpatient (RCR) | payer MEDICARE, OTHER, SELFPAY ==
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
--- NOTE | 2021-08-28 13:42 | HP.PTDCSUM ---
It has been my pleasure to treat LEXA QUICK referred by Dr. Pau Garcia DO, with the diagnosis of POST LUMBAR LAMINECTOMY SYNDROME for a total of 16 visit(s). Discharge Date: 08/28/21 Please see the following information for a summary of their discharge status. Subjective: Pt. reports being ~50% better, but is still having pain. Pt. reports 8/10 pain today. He has been moving boxes at home, lightly, but is doing okay with it. Pt. reports no N/T in either LE. He is planning to start seeing his chiropractor again with starting laser therapy and pulse treatments. He has not called back physician about injection and reports not wanting surgery. Lumbar Spine Pain Intensity (Out of 10): 8 % Improvement: 50 Objective/Function: MMT: pt. has good strength in BLEs, symmetrical noted. No signs of myotomal weakness. ROM: Lumbar spine: flexion mod loss increase NW, ext min loss increase NW, SB nil loss NE, rotation R nil/min loss NE, rotation L min loss increase nW. Normal HS length, normal hip ROM. GAIT: Pt. has slight flexed posture in stance. Normal step length, reduced arm swing noted. We reviewed body mechanics with lifting and carrying. Goal 1:: DECREASE C/O LOW BACK PAIN Goal Progress: Not Progressing Goal 2:: IMPROVE PERSONAL CARE, LIFTING, WALKING, SITTING, STANDING, SOCIAL LIFE, TRAVEL AND WORK/HOMEMAKING FUNCTION Goal Progress: Progressing Goal 3:: INSTRUCT IN PROPHYLAXIS Goal Progress: Progressing Plan: Pt. to be Dc to HEP at this point in time. Discharge Comments: Pt. was treated in aquatic setting for core strengthening, postural education and lumbar stabilization. Pt. reports making some gains, but is still limited in his activities at home as this provokes symptoms. He is I with an HEP, but is planning to explore more career resource specialist at this point in time. If there are questions or concerns regarding this patient's physical therapy, please feel free to call me at [phone]. Thank you for the referral of this patient. Sincerely, Bunny Aragno Sipos, DPT Balance/Gait/Functional tests - Balance/Special Test Scores Oswestry Low Back Score: 23
== END 2021-08-28 13:46 | disposition home or self-care (01) ==
LOC: PT 09:30
PROVIDERS: PCP Internal Medicine; Referring Provider Internal Medicine; Visit Provider Internal Medicine
DX: Z98.1 Arthrodesis status (principal)
CPT/HCPCS: 97110; 97113; 97162; 97164

== ENCOUNTER → 2022-09-03 | Outpatient (CLI) | payer MEDICARE, OTHER, SELFPAY ==
[2022-09-03 11:04] LABS: Absolute Lymphocyte Count 1.91 X10^3/uL (0.83-4.51); Absolute Neutrophil Count 4.6 X10^3/uL (2.0-7.7); Basophil# 0.04 X10^3/uL; Basophil% 0.6 % (0-1); Eosinophil# 0.06 X10^3/uL; Eosinophils% 0.9 % (0-5); Hematocrit 43.3 % (40-54); Hemoglobin 14.5 g/dL (13.0-16.5); Lymphocyte # 1.91 X10^3/ul (0.83-4.51); Lymphocyte % 27.4 % (19-41); Mean Corp Hgb Conc 33.5 g/dL (32-36); Mean Corpuscular Hgb 30.6 pg (27.0-32.0); Mean Corpuscular Volume 91.4 fL (80-94); Mean Platelet Vol. 10.6 fl (6.2-12.0); Monocyte# 0.38 X10^3/uL; Monocyte% 5.4 % (0-10); NRBC Flagged by Analyzer 0 % (0-5); Neutrophil # 4.57 X10^3/uL (2.7-7.7); Neutrophil % 65.4 % (47-70); Platelet Count 225 K/mm3 (150-450); RBC Distribution Width CV 13.3 % (11.6-14.6); RBC Distribution Width SD 45.3 fl (35.1-43.9); Red Blood Count 4.74 M/mm3 (4.6-6.2)
[2022-09-03 11:22] LABS: Hemoglobin A1c 5.5 % (3.8-5.6)
[2022-09-03 11:38] LABS: ALB/GLOB Ratio 1.2 RATIO (0.9-2.4); AST(SGOT) 19 U/L (15-37); Alanine Aminotransfer ALT/SGPT 30 U/L (16-61); Albumin, Serum 3.8 g/dL (3.2-5.0); Alkaline Phosphatase 70 U/L (45-117); Anion Gap 8 (5-15); BUN 12 mg/dL (7-18); BUN/Creat Ratio 11.4 RATIO (10-20); Chloride 108 mmol/L (98-107); Creatinine, Serum 1.05 mg/dL (0.70-1.30); EST Glomerular Filtration Rate 75 mL/min (>60); Est Glom Filt Rate - Afr Amer 90 mL/min (>60); Globulin 3.2 g/dL (2.2-4.2); Glucose 95 mg/dL (74-106); Potassium 3.7 mmol/L (3.5-5.1); Sodium Level 142 mmol/L (136-145); Thyroid Stim Hormone (TSH) 1.02 uIU/mL (0.358-3.74)
[2022-09-08 18:07] LABS: Aldosterone, Serum 4.3 ng/dL (0.0-30.0); Renin, Plasma 0.758 ng/mL/hr (0.167-5.380)
== END | disposition home or self-care (01) ==
PROVIDERS: PCP Internal Medicine; Referring Provider Physician Assistant Medical; Visit Provider Physician Assistant Medical
DX: I10 Essential (primary) hypertension (principal); I71.20 Thoracic aortic aneurysm, without rupture, unspecified; Z79.899 Other long term (current) drug therapy
CPT/HCPCS: 36415; 80053; 82088; 83036; 84244; 84443; 85025

== ENCOUNTER → 2022-09-09 | Outpatient (CLI) | payer MEDICARE, OTHER, SELFPAY ==
--- NOTE | 2022-09-09 08:31 | RDU_ITS ---
Reason For Study: Elevated BP Right Renal Artery Left Renal Artery Right renal artery ostium Left renal artery ostium 91.3/34.2 104.6/39.2 RSV/EDV. PSV/EDV. Right renal artery proximal Left renal artery proximal PSV/EDV 107/32.1 PSV/EDV. 84.7/29.9 . Right renal artery mid 144/58.4 Left renal artery mid 106.7/36.4 PSV/EDV. PSV/EDV . Right renal artery distal 72.3/29.4 Left renal artery distal 89.2/30.2 PSV/EDV. PSV/EDV. Right RAR 1.62. Left RAR 1.20. Right Renal Parenchyma Left Renal Parenchyma Upper Pole Medula 41.6/15.2 Left upper pole medulla 34.3/12.4 PSV/EDV. PSV/EDV . Right upper pole medulla EDR 0.4 . Left upper pole medulla EDR 0.4 . Right upper pole medulla R.I. Left upper pole medulla R.I. 0.64 . 0.64 . UP Cortex 19.7/9.7 PSV/EDV. Upper Minh Cortx 22.5/9.7 PSV/EDV. Left upper pole cortex EDR 0.5 . Right upper pole cortex EDR 0.4 . Left upper pole cortex R.I. 0.51 . Right upper pole cortex R.I. 0.57 . Left lower Pole medulla 29.8/10.6 Right lower Pole medulla 35.2/13.3 PSV/EDV . PSV/EDV . Left lower pole medulla EDR 0.4 . Right lower pole medulla EDR 0.4 . Left lower pole medulla R.I. 0.64 . Right lower pole medulla R.I. Lower Pole Cortx 16.3/7.1 PSV/EDV. 0.62 . Left lower pole cortex EDR 0.4 . Lower Pole Cortex 23.4/8.8 PSV/EDV. Left lower pole cortex R.I. 0.56 . Right lower pole cortex EDR 0.4 . Left Renal Hilar Right lower pole cortex R.I. 0.62 . LT Hilar avg 74.4/29 PSV/EDV . Right Renal Hilar Left hilar acceleration time 60 Right Hilar avg 90.6/32.1 PSV/EDV. m/sec. Right hilar acceleration time 50 Left Renal Dimensions m/sec. Left kidney size 1.17 cm . Right Renal Dimensions Left cortical dimension 1.74 cm . Right kidney size 10.71 cm . Right cortical dimension 1.60 cm . Aorta Proximal abdominal aorta 1.96 x 2.00 cm . Proximal abdominal aorta peak systolic velocity is 88.8 cm/sec . Distal abdominal aorta 1.77 x 1.77 cm . Distal abdominal aorta peak systolic velocity is 97.9 cm/sec . VL/Renal Artery Duplex Ultrasound Interpretation Summary Right renal artery patent with normal velocities and no evidence of stenosis. Left renal artery patent with normal velocities and no evidence of stenosis. Right renal vein patent Left renal vein patent Right kidney normal in size Left kidney normal in size Ordering Physician: Joselin Garnett Referring Physician: Pau Garcia M.D. Performed By: Natty Messina RVT
== END | disposition home or self-care (01) ==
LOC: CVS 08:31
PROVIDERS: PCP Internal Medicine; Referring Provider Physician Assistant Medical; Visit Provider Physician Assistant Medical
DX: I10 Essential (primary) hypertension (principal)
CPT/HCPCS: 93975

== ENCOUNTER → 2023-02-09 | Outpatient (CLI) | payer MEDICARE, OTHER, SELFPAY ==
--- NOTE | 2023-02-09 12:45 | CT_ITS ---
STUDY: CTA CHEST REASON FOR EXAM: Male, 68 years old. TAA RADIATION DOSAGE (If Supplied By Facility): CTDIvol = ( 19.89 ) mGy, DLP = ( 498.31 ) mGycm TECHNIQUE: The examination was performed with the intravenous administration of IV 100mL Isovue-370. Post-processing of the angiographic images was performed, with multiplanar reformation and 3D reconstruction. Individualized dose optimization techniques were used for this CT. COMPARISON: August 26, 2021 FINDINGS: Normal enhancement of the main pulmonary artery and right and left pulmonary arteries. Normal enhancement of the bilateral peripheral pulmonary arteries. There is no demonstrated pulmonary embolism. Dilated ascending aorta measuring 4.6 cm. There is no demonstrated aortic dissection. Normal heart and pericardium. Normal mediastinum. Normal hilar regions. Normal visualized trachea and bronchi. The lungs are well expanded. There is a stable right upper lobe posterior 4 mm nodule, image 177 series 2. Right upper lobe calcified granuloma. Normal pleura. Normal chest wall structures. Normal osseous structures. Normal visualized upper abdomen. CT/CTA Chest W/WO Contrast IMPRESSION: No demonstrated pulmonary embolism or arterial dissection. Dilated ascending aorta. Stable right upper lobe nodule and calcified granuloma. Electronically Signed: Sylvain Morrissey DO at 23:28 EST ,
[2023-02-09 13:18] LABS: CREATININE FINGERSTICK < 1.0 mg/dL (0.70-1.30); EGFR FINGERSTICK > 60.0000 mL/min (>60)
== END | disposition home or self-care (01) ==
LOC: CT 12:40
PROVIDERS: PCP Internal Medicine; Referring Provider Nurse Practitioner Family; Visit Provider Nurse Practitioner Family
DX: I71.20 Thoracic aortic aneurysm, without rupture, unspecified (principal)
CPT/HCPCS: 71275; Q9967; A4216

== ENCOUNTER → 2024-05-18 | Outpatient (CLI) | payer MEDICARE, OTHER, SELFPAY ==
[2024-05-18 08:32] LABS: Bacteria 0 SEEN /hpf (None Seen); Mucous, Urine 0 SEEN /hpf (<or=2+); Squamous Epithelial Cells - UA 0 SEEN /hpf (0-5)
[2024-05-18 09:48] LABS: Absolute Neutrophil Count 3.8 X10^3/uL (2.0-7.7); Basophil# 0.09 X10^3/uL; Basophil% 1.2 % (0-1); Eosinophil# 0.43 X10^3/uL; Eosinophils% 5.9 % (0-5); Hematocrit 42.4 % (40-54); Hemoglobin 14.7 g/dL (13.0-16.5); Lymphocyte % 34.1 % (19-41); Mean Corp Hgb Conc 34.7 g/dL (32-36); Mean Corpuscular Hgb 29.8 pg (27.0-32.0); Mean Platelet Vol. 11.1 fl (6.2-12.0); Monocyte% 6.8 % (0-10); NRBC Flagged by Analyzer 0 % (0-5); Neutrophil # 3.81 X10^3/uL (2.7-7.7); Neutrophil % 51.9 % (47-70); Platelet Count 248 K/mm3 (150-450); RBC Distribution Width CV 12.5 % (11.6-14.6); Red Blood Count 4.93 M/mm3 (4.6-6.2); White Blood Count 7.3 K/mm3 (4.4-11.0)
[2024-05-18 09:50] LABS: Color, Urine Straw (Yellow); Glucose, Dipstick Normal (Normal); Ketone-Dipstick Negative (Negative); Leukocyte Esterase-Dipstick Negative /ul (Negative); Nitrite-Dipstick Negative (Negative); Occult Blood-Urine Negative /ul (Negative); Protein-Dipstick 15 mg/dl (Negative); Specific Gravity, Urine 1.015 (1.002-1.030); Urine Bilirubin Dipstick Negative (Negative); Urine Clarity Clear (Clear); Urine Urobilinogen Normal (Normal)
[2024-05-18 10:02] LABS: Red Blood Cells-Urine 0-5 SEEN /hpf (0-5); White Blood Cells 0-5 SEEN /hpf (0-5)
[2024-05-18 10:18] LABS: Anion Gap 12 (5-15); BUN 20 mg/dL (4-19); BUN/Creat Ratio 19.3 RATIO (10-20); Calcium,Total 9.4 mg/dL (7.6-11.0); Chloride 105 mmol/L (98-108); Creatinine, Serum 1.05 mg/dL (0.70-1.20); EST Glomerular Filtration Rate 77 (>60); Glucose 96 mg/dL (70-99); Sodium Level 137 mmol/L (133-145)
== END | disposition home or self-care (01) ==
LOC: LAB 08:28
PROVIDERS: PCP Internal Medicine; Referring Provider Physician Assistant Medical; Visit Provider Physician Assistant Medical
DX: I71.21 Aneurysm of the ascending aorta, without rupture (principal); I10 Essential (primary) hypertension; R31.9 Hematuria, unspecified
CPT/HCPCS: 36415; 80048; 81001; 85025

== ENCOUNTER → 2024-06-14 | Outpatient (CLI) | payer MEDICARE, OTHER, SELFPAY ==
--- NOTE | 2024-06-14 16:56 | CT_ITS ---
PROCEDURE: CTA CHEST W/WO CONTRAST 06/14/2024 REASON FOR EXAM: KNOWN AAA TECHNIQUE: CTA imaging of the chest with intravenous contrast. Multiplanar and multisequence images were obtained. CONTRAST: Isovue 370 VOLUME: 100 mL Gauge IV One or more dose reduction techniques were used (e.g., Automated exposure control, adjustment of the mA and/or kV according to patient size, use of iterative reconstruction technique). RADIATION DOSE SUMMARY: CTDlvol: 18.07 mGy DLP: 683 mGycm COMPARISON: Not provided at the time of interpretation. FINDINGS: Aneurysmal ascending aorta measuring 4.8 cm. Mild atheromatous plaques of the coronary arteries. Moderate diffuse spondylosis. Normal enhancement of the main pulmonary artery and right and left pulmonary arteries. Normal enhancement of the bilateral peripheral pulmonary arteries. There is no demonstrated pulmonary embolism. There is no demonstrated aortic dissection. Normal heart and pericardium. Normal mediastinum. Normal hilar regions. Normal visualized trachea and bronchi. The lungs are well expanded. Normal pulmonary parenchyma. Normal pleura. Prior cholecystectomy. Normal remaining visualized upper abdomen. CT/CTA Chest W/WO Contrast IMPRESSION: Aneurysmal ascending aorta measuring 4.8 cm. Mild atheromatous plaques of the coronary arteries. No CT evidence of pulmonary embolus or aortic dissection. Reading [facility] [address]
== END | disposition home or self-care (01) ==
LOC: CT 16:52
PROVIDERS: PCP Internal Medicine; Referring Provider Physician Assistant Medical; Visit Provider Physician Assistant Medical
DX: I10 Essential (primary) hypertension (principal); I71.21 Aneurysm of the ascending aorta, without rupture
CPT/HCPCS: 71275; Q9967

== ENCOUNTER → 2024-09-20 | Outpatient (CLI) | payer MEDICARE, OTHER, SELFPAY ==
--- NOTE | 2024-09-21 07:21 | STRESSREP_ITS ---
Stress Test Report Exercise myocardial perfusion stress test. 69-year-old male with a history of dyspnea on exertion Stress protocol: Resting EKG demonstrates sinus bradycardia with a rate of 46 bpm resting blood pressure is 142/82 mmHg. The patient exercised according to the regular Jose Miguel protocol for a total duration of 8 minutes and 46 seconds attaining a maximum heart rate of 109 bpm which was 72% of maximum predicted heart rate; the maximum workload was 10.1 metabolic equivalents. At rest there were no ST or T wave changes noted to suggest ischemia and at peak exercise upsloping ST changes only were noted which did not meet the criteria for ischemia. No clinical angina was noted the test was terminated due to the target heart rate being achiev ed/fatigue. The peak blood pressure was 152/74 mmHg. Rate-pressure product was 14,900. Myocardial perfusion protocol. 11.8 mCi of technetium 99m sestamibi was injected at rest. The patient exercis ed according to regular Jose Miguel protocol for total duration of 8 minutes and 46 and at peak exercise 36 mCi of technetium 99m sestamibi was injected stress images were obtained stress and rest images were reconstructed in comparing the short axis vertical long and horizontal long axis. Gated images were also obtained. Perfusion SPECT analysis: Review of the stress images demonstrate normal uptake of tracer noted in all areas of the myocardium. The resting images similarly demonstrate normal uptake of tracer noted in all areas of the myocardium. No areas of reversibility are noted to suggest ischemia no previous infarct was noted. Gated SPECT analysis: The gated ejection fraction is 61%. Conclusion: Normal exercise myocardial perfusion stress test at a high workload Preserved ejection fraction.
== END | disposition home or self-care (01) ==
LOC: CVS 06:48
PROVIDERS: Referring Provider Physician Assistant Medical; Visit Provider Physician Assistant Medical
DX: R06.02 Shortness of breath (principal)
CPT/HCPCS: 78452; 93017; A9500; A4216